=== PATIENT | male | born 1980 | race Two or more races ===

== ENCOUNTER 2024-02-05 18:20 | Inpatient (IN) | payer MEDICAID, OTHER ==
[~2024-02-05] VITALS: Ht 175.3 cm; Wt 63.1 kg
[2024-02-05] MEDS: FOLIC ACID 1 MG, MULTIPLE VITAMIN 10 ML, MAGNESIUM SULF SDV 50% 8 MEQ, THIAMINE INJ 100... INJ STA (18:34)
[2024-02-05] MEDS: LORazepam 2MG/ML-1ML VIAL IV ONE ×2 (19:01→20:28)
[2024-02-05] MEDS: chlordiazePOXIDE HCL 25 MG CAP PO ONE (19:01)
[2024-02-05] MEDS: SODIUM CHLORIDE 0.9% 2,000 ML IV ONE (19:01)
[2024-02-05 19:20] LABS: Eosinophils # (auto) 0 10 ^3/uL (0-0.8); Monocytes # (auto) 0.4 10 ^3/uL (0-1.3); Monocytes % (auto) 5.8 % (0.0-12.0); Nucleated Red Blood Cells % 0.5 %; Red Cell Distribution Width 15.6 % (11.8-14.3); White Blood Cell 7.7 10^3/uL (4.4-10.8)
[2024-02-05 19:23] LABS: Basophils # (auto) 0 10 ^3/uL (0-0.2); Basophils % (auto) 0.5 % (0.0-2.0); Hematocrit 37.2 % (41.0-53.0); Lymphocytes # (auto) 0.4 10 ^3/uL (0.4-5.4); Lymphocytes % (auto) 5.3 % (10.0-50.0); Mean Corpuscular Hgb Conc. 35.1 g/dL (32.0-36.0); Mean Corpuscular Volume 102.6 fL (80.0-100.0); Neutrophils # (auto) 6.8 10 ^3/uL (1.6-8.6); Neutrophils % (auto) 88.4 % (37.0-80.0); Platelet Count (auto) 56 10^3/uL (140-450); Red Blood Cells 3.63 10^6/uL (4.5-5.90)
[2024-02-05 19:30] VITALS: PULSE 124; O2SAT 97
[2024-02-05 19:33] LABS: Alanine Aminotransferase 47 U/L (7-40); Albumin 4.1 g/dL (3.2-4.8); Alkaline Phosphatase 178 U/L (46-116); Anion Gap 30 (5-15); Aspartate Aminotransferase 217 U/L (13-40); BUN/Creatinine Ratio 12.6 (10.0-20.0); Blood Alcohol 85.9 mg/dL (<10); Blood Urea Nitrogen 12 mg/dL (9-23); Calcium 9.2 mg/dL (8.7-10.4); Carbon Dioxide 16 mmol/L (20-30); Chloride 90 mmol/L (98-107); Glucose 166 mg/dL (74-106); Potassium 2.9 mmol/L (3.5-5.1); Sodium 136 mmol/L (136-145)
[2024-02-05 19:34] LABS: Bilirubin, Total 1.3 mg/dL (0.2-1.0); Total Protein 6.9 g/dL (5.7-8.2)
[2024-02-05 19:47] LABS: Platelet Estimate Decreased
[2024-02-05 19:48] LABS: Large Platelets FEW; Macrocytosis Slight
[2024-02-06] MEDS: ACETAMINOPHEN 500 MG TAB PO ONE (00:48)
[2024-02-06] MEDS: POTASSIUM EFFERVESENT TAB 25 MEQ PO ONE (00:49)
[2024-02-06] MEDS: POTASSIUM CHL 20MEQ/100ML 100 ML IV ONE (00:49)
[2024-02-06] MEDS: MVI in SODIUM CHLORIDE 0.9% 1,010 ML ONE (00:52)
[2024-02-06] MEDS ORDERED: MAGNESIUM SULFATE 1GM/100ML 100 ML IV NR (01:00)
[2024-02-06] MEDS ORDERED: LORazepam 2MG/ML-1ML VIAL IV PRN (01:30)
[2024-02-06] MEDS ORDERED: ACETAMINOPHEN 325 MG TAB PO PRN (01:30)
[2024-02-06] MEDS ORDERED: ONDANSETRON HCL 4 MG/2 ML VIAL IV PRN (01:30)
[2024-02-06] MEDS ORDERED: HYDROcodone-ACET 5/325MG TAB PO PRN (01:30)
[2024-02-06] MEDS ORDERED: DOCUSATE SOD 100 MG CAP PO PRN (01:30)
[2024-02-06] MEDS ORDERED: chlordiazePOXIDE HCL 25 MG CAP PO PRN (01:30)
[2024-02-06] MEDS ORDERED: IBUPROFEN 600 MG TAB PO PRN (02:15)
[2024-02-06] MEDS ORDERED: NITROGLYCERIN 0.4 MG SL TAB SL PRN (04:00)
[2024-02-06] MEDS ORDERED: MORPHINE SULFATE INJ 2 MG/ml SYRG IV PRN (04:00)
[2024-02-06] MEDS: LORazepam 2MG/ML-1ML VIAL IV ONE (04:58)
[2024-02-06] MEDS: SODIUM CHLORIDE 0.9% 1,000 ML IV ONE (04:58)
[2024-02-06] MEDS: SODIUM CHLORIDE 0.9% 1,000 ML IV SCH (04:59)
[2024-02-06 05:48] LABS: Urine Bacteria None Seen /hpf (None Seen)
[2024-02-06 06:04] LABS: Urine Blood Negative /uL (Negative); Urine Clarity Clear (Clear); Urine Color Yellow (Yellow); Urine Hyaline Cast FEW /lpf (0 - 2); Urine Mucus FEW (None Seen); Urine Protein, UAD 1+ (Negative); Urine Specific Gravity 1.013 (1.001-1.035); Urine Urobilinogen 2 mg/dL (Negative); Urine WBC 3 /hpf (0 - 3); Urine pH 6.5 (5.0-9.0)
[2024-02-06 06:13] LABS: Amphetamine Screen, Urine Neg (NEGATIVE); Benzodiazephine Screen, Urine Neg (NEGATIVE)
[2024-02-06 06:14] LABS: Barbiturate Scree,Urine Neg (NEGATIVE); Cannabinoid Screen, Urine Pos (NEGATIVE); Cocaine Screen, Urine Neg (NEGATIVE); Opiate Scree,Urine Neg (NEGATIVE); Phencyclidine Screen, Urine Neg (NEGATIVE)
[2024-02-06 06:43] LABS: Basophils # (auto) 0 10 ^3/uL (0-0.2); Eosinophils # (auto) 0 10 ^3/uL (0-0.8); Lymphocytes # (auto) 0.9 10 ^3/uL (0.4-5.4); Mean Corpuscular Hgb Conc. 34.7 g/dL (32.0-36.0); Monocytes # (auto) 0.3 10 ^3/uL (0-1.3); Platelet Count (auto) 43 10^3/uL (140-450)
[2024-02-06 06:45] LABS: Basophils % (auto) 0.9 % (0.0-2.0); Eosinophils % (auto) 0.2 % (0.0-7.0); Hematocrit 28.4 % (41.0-53.0); Hemoglobin 9.9 g/dL (13.5-17.5); Lymphocytes % (auto) 20.6 % (10.0-50.0); Mean Corpuscular Hemoglobin 36.7 pg (28.0-32.0); Mean Corpuscular Volume 105.8 fL (80.0-100.0); Monocytes % (auto) 8.3 % (0.0-12.0); Nucleated Red Blood Cells % 0.4 %; Red Blood Cells 2.69 10^6/uL (4.5-5.90); Red Cell Distribution Width 15.9 % (11.8-14.3); White Blood Cell 4.2 10^3/uL (4.4-10.8)
[2024-02-06 07:01] LABS: Alanine Aminotransferase 36 U/L (7-40); Albumin 3.2 g/dL (3.2-4.8); Alkaline Phosphatase 141 U/L (46-116); Anion Gap 12 (5-15); Aspartate Aminotransferase 196 U/L (13-40); BUN/Creatinine Ratio 11.4 (10.0-20.0); Bilirubin, Total 2.3 mg/dL (0.2-1.0); Blood Urea Nitrogen 9 mg/dL (9-23); Calcium 8.2 mg/dL (8.7-10.4); Carbon Dioxide 27 mmol/L (20-30); Chloride 94 mmol/L (98-107); Glucose 112 mg/dL (74-106); Potassium 3.3 mmol/L (3.5-5.1); Sodium 133 mmol/L (136-145); Total Protein 5.6 g/dL (5.7-8.2)
[2024-02-06 09:00] VITALS: PULSE 105; RESP 14; O2SAT 97
[2024-02-06] MEDS: THIAMINE HCL 100 MG TAB PO SCH (09:51)
[2024-02-06] MEDS: FOLIC ACID 1 MG TAB PO SCH (09:51)
[2024-02-06] MEDS: MULTIPLE VITAMIN TAB PO SCH (09:52)
[2024-02-06] MEDS: FOLIC ACID 1 MG, MULTIPLE VITAMIN 10 ML, MAGNESIUM SULF SDV 50% 8 MEQ, THIAMINE INJ 100... INJ ONE (09:56)
[2024-02-06 22:48] VITALS: PULSE 85; RESP 18; O2SAT 98
[2024-02-06] MEDS ORDERED: GABA-1250 PO (22:53)
[2024-02-07] MEDS: THROAT LOZENGES(CEPASTAT) MT PRN (00:15)
[2024-02-07 01:00] VITALS: BP 130/97; PULSE 89; RESP 18; TEMP 98.2; O2SAT 96
[2024-02-07 05:00] VITALS: BP 138/94; PULSE 113; RESP 18; TEMP 98.3; O2SAT 99
[2024-02-07 06:34] LABS: Eosinophils # (auto) 0.1 10 ^3/uL (0-0.8); Hemoglobin 9.6 g/dL (13.5-17.5); Lymphocytes # (auto) 1.3 10 ^3/uL (0.4-5.4)
[2024-02-07 06:37] LABS: Alanine Aminotransferase 34 U/L (7-40); Alkaline Phosphatase 129 U/L (46-116); Anion Gap 7 (5-15); Aspartate Aminotransferase 165 U/L (13-40); Carbon Dioxide 28 mmol/L (20-30); Chloride 98 mmol/L (98-107); Glucose 102 mg/dL (74-106); Potassium 2.7 mmol/L (3.5-5.1); Sodium 133 mmol/L (136-145)
[2024-02-07 06:38] LABS: Basophils # (auto) 0 10 ^3/uL (0-0.2); Basophils % (auto) 0.9 % (0.0-2.0); Bilirubin, Total 1.3 mg/dL (0.2-1.0); Eosinophils % (auto) 1.5 % (0.0-7.0); Hematocrit 27.3 % (41.0-53.0); Lymphocytes % (auto) 30.2 % (10.0-50.0); Mean Corpuscular Hemoglobin 36.8 pg (28.0-32.0); Mean Corpuscular Hgb Conc. 35.2 g/dL (32.0-36.0); Mean Corpuscular Volume 104.5 fL (80.0-100.0); Monocytes # (auto) 0.3 10 ^3/uL (0-1.3); Monocytes % (auto) 7.4 % (0.0-12.0); Neutrophils # (auto) 2.5 10 ^3/uL (1.6-8.6); Red Blood Cells 2.62 10^6/uL (4.5-5.90); Red Cell Distribution Width 15.6 % (11.8-14.3); Total Protein 5.2 g/dL (5.7-8.2); White Blood Cell 4.2 10^3/uL (4.4-10.8)
[2024-02-07 06:46] LABS: BUN/Creatinine Ratio 7.7 (10.0-20.0); Blood Urea Nitrogen < 5 mg/dL (9-23)
[2024-02-07 06:54] LABS: Calcium 8.4 mg/dL (8.7-10.4)
[2024-02-07 07:20] LABS: Platelet Count (auto) 64 10^3/uL (140-450)
[2024-02-07 08:00] VITALS: PULSE 171; RESP 16; O2SAT 100
[2024-02-07 09:00] VITALS: BP 124/85; PULSE 105; RESP 16; TEMP 99.4; O2SAT 100
[2024-02-07 12:21] VITALS: BP 130/98; PULSE 119; RESP 18; TEMP 98.2; O2SAT 97
[2024-02-07] MEDS: POTASSIUM CHLORIDE 20 MEQ, LIDOCAINE 1% (LOCAL ANESTH.) 2 ML in SODIUM CHL 0.9% 100 ML IV ONE (14:15)
[2024-02-07] MEDS: POTASSIUM CHL 20 Meq TABLET PO ONE (15:29)
== END 2024-02-07 15:48 | disposition left against medical advice (07) | DRG 816 ==
LOC: ER 18:20 → EDBD 18:20 → TELE-WESTW 02-06 03:47 → TELE 02-06 03:47 → TELE-WESTW 02-06 22:08
PROVIDERS: ADMIT Nurse Practitioner Family; ATTEND Internal Medicine
DX: T51.91XA Toxic effect of unspecified alcohol, accidental (unintentional), initial encounter (principal); D61.818 Other pancytopenia; K76.89 Other specified diseases of liver; R73.9 Hyperglycemia, unspecified; F10.229 Alcohol dependence with intoxication, unspecified; Z53.29 Procedure and treatment not carried out because of patient's decision for other reasons; F41.9 Anxiety disorder, unspecified; F32.A Depression, unspecified; F10.239 Alcohol dependence with withdrawal, unspecified; Z79.899 Other long term (current) drug therapy; Y90.4 Blood alcohol level of 80-99 mg/100 ml; E87.6 Hypokalemia
CPT/HCPCS: 36415; 80053; 80307; 80320; 81001; 84484; 85025; 93005; G0378; J2001

== ENCOUNTER 2024-09-27 10:20 | Inpatient (IN) | payer MEDICAID ==
[~2024-09-27] VITALS: Ht 175.3 cm; Wt 84.9 kg
[~2024-09-27 10:20] MED LIST: GABA-1250 PO
--- NOTE | 2024-09-27 10:43 | ED.PDOC ---
HPI (NEURO) HPI Comments 44y M who presents to the ED via EMS for chief complaint of syncope. - EMS states pt was called by after pt was in police car and had syncopal episodes prior at counter at liquor store and in back of police car - EMS states they arrived on scene and states pt was alert and oriented but states pt appeared in post-ictal state - pt in the ED states, he did have syncopal episode at liquor store counter and remembers waking on the floor - pt states has been drinking nonstop for the past 2 weeks, drinking 1 pint daily, with last drink last night PM - pt states he has also not eaten anything except alcohol for the past 2 weeks - pt states he has prior history of ETOH abuse PMH: HTN, anxiety, DM, ETOH abuse PSH: esophageal varices banding Meds: gabapentin Allergies: denies social history: heavy ETOH use, denies tobacco use, denies drug use KULJU: SYNCOPE, ETOH Patient denies being homeless. 44-year-old male brought in by ambulance from a liquor store after two witnessed episodes of syncope. One at the liquor store and another one at the back of the [employer]'s car. Patient does not remember exactly. Patient denies any history of seizures. Patient admits to binge drinking the last two weeks at least a pt of alcohol daily. He was at the liquor store today to purchase more alcohol. Patient was unable to communicate if he feels that he had any physical trauma or head injury or neck injury. He is able to answer questions appropriately. Able to recall some of his medications such as gabapentin and some of his past medical history. Patient moving all four extremities. Does not appear to have any focal deficits. Patient also states he has not been eating for the last two weeks. Patient states that he is hungry. Per EMS, pre-hospital course vital signs were stable with some tachycardia heart rate in the 130s. On our initial evaluation here patient was hypotensive blood pressure in the 60s. We will give him some fluid resuscitation. HPI: Poor Historian. REVIEW OF SYSTEMS: CONSTITUTIONAL: Denies acute: fever, diaphoresis, chills, HEAD: Denies acute: headache, photophobia Eyes: Denies acute: Double vision, vision loss, eye pain, eye discharge. EARS: Denies acute: tinnitus, hearing loss, ear discharge, ear pain, THROAT: Denies acute: sore throat, swelling, difficulty swallowing , pain with swallowing, change in voice. NECK: Denies acute: neck pain, neck swelling, stiff neck. HEART: Denies acute : chest pain, palpitations, LUNGS: Denies acute: SOB, wheezing, cough, hemoptysis ABDOMEN: Denies acute: abdominal pain, Nausea, Vomiting, diarrhea, melena , hematemesis, hematochezia SKIN: Denies acute: rash, redness, lesions, itchiness. EXTREMITIES: Denies acute: calf pain, numbness, tingling, weakness, denies pain in extremity. Denies acute: Low back pain. Neuro: Denies acute: focal neurological deficit, motor or sensory focal neurological deficit, tremors, seizure like activity, confusion, dizziness, cauda equina like symptoms. : Denies acute: dysuria, hematuria, flank pain, increase in urinary frequency. PSYCH: Denies acute: hallucination, suicidal ideation, homicidal ideation. PHYSICAL EXAM: General: ----mild----acute distress, awake and alert. Head: normocephalic, atraumatic. Neck: supple, trachea is midline, no swelling. Throat: Normal phonation. Eyes:, no erythema, no purulent discharge, no proptosis, no icterus. Heart: regular rate, regular rhythm, no significant murmur appreciated. Lungs: no apparent respiratory distress, Able to speak in full sentences. No wheezing, no rhonchi, no crackles. No stridors Clear to auscultation bilaterally. Abdomen: non tender to palpation, non distended, soft, no guarding, no rebound, + bowel sounds. Neuro: Awake, Alert, oriented to name, self, situation, follows commands GCS=15. Speech is normal. Skin: no petechia, no purpura, no cyanosis, non-pale, not jaundice. Lower extremities: --no - Pitting edema no deformity, no focal swelling, no calf TTP. Makes eye contact. moves all four extremities. Face: no apparent facial droop. No nuchal rigidity, Kernig's sign, Brudzinski's sign, no meningeal signs. ED COURSE: Chief Complaint: Seizure Time Seen by MD: 11:49 Reviewed Notes: Nurses Notes, Produce Clerk Notes, Allergies Information Source: Patient, Emergency Med Personnel Mode of Arrival: EMS Past Medical History PAST MEDICAL HISTORY: Anxiety, Depression Family History Family History: Reviewed,noncontributory to illness Social History Smoker: Non-Smoker Alcohol: Heavy Drugs: Marijuana Lives In: Home Was a procedure done? Was a procedure done?: No Differential Diagnosis (SZ) Seizure: Hyperventilation, Psychogenic Seizure, Alcohol Withdrawl, Anticonvulsant Withdrawl, Closed Head Injury, CVA/TIA, Drug Ingestion, Eclampsia, Hypocalcemia, Hypoglycemia, Hyponatremia, Hypoxemia, Idiopathic, Mass Lesion, Meningitis, Syncope, Encephalopathy, Epilepsy-Break Through, Epilepsy- Status General Weakness: Anemia, CVA, Dehydration, Dysrhythmia, Electrolyte imbalance, Encephalopathy, Guillain-Bernie, Hypoglycemia, Hypotension, Hypovolemia, Labyrinthitis, Meniere's disease, Myasthenia gravis, Myocardial infarction, Pulmonary embolus, Renal failure, Repiratory failure, TIA, VBI, Vertigo: chaz tral, Vertigo: peripheral, Vestibular neuronitis X-Ray, Labs, Meds, VS Vital Signs Date Time Temp Pulse Resp B/P (MAP) Pulse Ox O2 Delivery O2 Flow Rate FiO2 09/27/24 13:41 124 09/27/24 13:10 130 15 143/79 (100) 97 09/27/24 11:58 124 09/27/24 10:55 98.2 139 18 82/54 (63) 94 98.2 09/27/24 10:55 139 18 94 Room Air* 0 21 09/27/24 10:42 98.2 130 20 99/69 (79) 95 98.2 Lab Test 09/27/24 13:08 09/27/24 13:00 09/27/24 11:22 Range/Units Urine Color Dark yellow Yellow Urine Clarity Turbid H Clear Urine pH 6.5 5.0-9.0 Urine Specific [place] 1.012 1.001-1.035 Urine Protein 1+ H Negative Urine Ketones Negative Negative Urine Blood 3+ H Negative /uL Urine Nitrite Negative Negative Urine Bilirubin Negative Negative Urine Urobilinogen Normal Negative mg/dL Urine Leukocyte Esterase Negative Negative /uL Urine RBC 1 0 - 3 /hpf Urine Microscopic WBC 1 0-3 /HPF Urine Squamous Epithelial Cells None seen <5 /hpf Urine Bacteria None seen None Seen /hpf Urine Hyaline Casts Few 0 - 2 /lpf Urine Glucose Normal Normal mg/dL Urine Opiates Screen Neg NEGATIVE Urine Fentanyl Screen Neg NEGATIVE Urine Barbiturates Screen Neg NEGATIVE Urine Phencyclidine Screen Neg NEGATIVE Urine Amphetamines Screen Neg NEGATIVE Urine Benzodiazepines Screen Neg NEGATIVE Urine Cocaine Screen Neg NEGATIVE Urine Cannabinoids Screen Pos NEGATIVE Lactic Acid Level 3.9 *H 8.8 *H 0.4-2.0 mmol/L Troponin I High Sensitivity 134 *H 156 *H </=54 ng/L White Blood Count 11.2 H 4.4-10.8 10^3/uL Red Blood Count 4.90 4.5-5.90 10^6/uL Hemoglobin 14.7 13.5-17.5 g/dL Hematocrit 41.7 41.0-53.0 % Mean Corpuscular Volume 85.0 80.0-100.0 fL Mean Corpuscular Hemoglobin 29.9 28.0-32.0 pg Mean Corpuscular Hemoglobin Concent 35.2 32.0-36.0 g/dL Red Cell Distribution Width 13.8 11.8-14.3 % Platelet Count 142 140-450 10^3/uL Mean Platelet Volume 10.1 6.9-10.8 fL Neutrophils (%) (Auto) 86.8 H 37.0-80.0 % Lymphocytes (%) (Auto) 7.3 L 10.0-50.0 % Monocytes (%) (Auto) 5.0 0.0-12.0 % Eosinophils (%) (Auto) 0.1 0.0-7.0 % Basophils (%) (Auto) 0.8 0.0-2.0 % Neutrophils # (Auto) 9.7 H 1.6-8.6 10 ^3/uL Lymphocytes # (Auto) 0.8 0.4-5.4 10 ^3/uL Monocytes # (Auto) 0.6 0-1.3 10 ^3/uL Eosinophils # (Auto) 0 0-0.8 10 ^3/uL Basophils # (Auto) 0.1 0-0.2 10 ^3/uL Nucleated Red Blood Cells 0.4 % Sodium Level 118 *L 136-145 mmol/L Potassium Level 2.5 *L 3.5-5.1 mmol/L Chloride Level 63 L 98-107 mmol/L Carbon Dioxide Level 36 H 20-31 mmol/L Anion Gap 19 H 5-15 Blood Urea Nitrogen 29 H 9-23 mg/dL Creatinine 2.14 H 0.700-1.30 mg/dL Glomerular Filtration Rate Calc 38 >90 mL/min BUN/Creatinine Ratio 13.6 10.0-20.0 Serum Glucose 151 H 74-106 mg/dL Calcium Level 14.0 *H 8.7-10.4 mg/dL Magnesium Level 1.6 1.6-2.6 mg/dL Total Bilirubin 1.4 H 0.2-1.0 mg/dL Aspartate Amino Transferase (AST) 245 H 13-40 U/L Alanine Aminotransferase (ALT) 108 H 7-40 U/L Alkaline Phosphatase 131 H 46-116 U/L Creatine Kinase 4647 H 46-171 U/L Total Protein 7.5 5.7-8.2 g/dL Albumin 4.4 3.2-4.8 g/dL Plasma/Serum Blood Alcohol 11.4 H <10 mg/dL Current Medications Medications (Trade) Dose Ordered Sig/Bruno Route Start Time Stop Time Status Last Admin Sodium Chloride 1,000 ml @ 1,000 mls/hr Q1H ONCE IV 09/27/24 12:15 09/27/24 13:14 DC 09/27/24 12:16 Potassium Chloride (Klor-Con Tablet) 60 meq ONCE ONCE PO 09/27/24 12:15 09/27/24 12:16 DC 09/27/24 12:21 Sodium Chloride 1,000 ml @ 1,000 mls/hr Q1H ONCE IV 09/27/24 12:15 09/27/24 13:14 DC 09/27/24 13:28 Piperacillin Sod/ Tazobactam Sod 100 ml @ 100 mls/hr ONCE ONCE IV 09/27/24 12:15 09/27/24 13:14 DC 09/27/24 12:22 Time of 1ST Reevaluation: 11:53 Reevaluation 1ST: Improved Patient Education/Counseling: Diagnosis, Treatment Family Education/Counseling: No Family Present Comments Patient presented with the above HPI.---syncope and collapse and generalized weakness---workup was initiated. patient was found with the above mentioned diagnosis. the following medications were ordered: please refer to order lists of meds and tests obtained by myself Dr. Perrin. Patient ED course and VS have been stabilized. Patient has been reassessed in the ED and remained in a stable condition. Pertinent incidental findings were discussed with the patient and/or family. Patient/family voices understanding and is agreeable with plan. Patient has been observed in the ED adequate length of time to insure improvement/stability. Escalation of care considered: Consideration of escalation to observation or admission Electrolytes were replaced, patient was given multiple food resuscitation. Vital signs improved. Repeat CMP was obtained which shows improvement. Patient denies any chest pain or shortness of breath. Patient was ADMITTED to the medicine team for further evaluation and treatment of their presentation. All the reports of any imaging studies that were ordered by myself were reviewed by myself. Departure 1 Departure Time of Disposition: 11:35 Impression: Primary Impression: Syncope and collapse Additional Impressions: Hypotension Hyponatremia Rhabdomyolysis Acute renal failure Elevated LFTs Alcohol abuse Hypokalemia Hypercalcemia Elevated troponin Dehydration Disposition: ADMITTED INPATIENT Admit to: ICU Condition: Critical Discharged With: Self Critical Care Note Critical Care Time?: Yes (55 min-critical care time only) I personally scribed for MARBELLA PERRIN DO ([email or web address]) on 09/27/24 at 10:43. Electronically submitted by Farhat Santiago ([email or web address]). I personally scribed for MARBELLA PERRIN DO ([email or web address]) on 09/27/24 at 11:49. Electronically submitted by Farhat WEISS). MARBELLA PERRIN DO September 27, 2024 10:43
[2024-09-27 10:55] VITALS: PULSE 139; RESP 18; O2SAT 94
--- NOTE | 2024-09-27 11:23 | DVH ---
EXAM: CT HEAD WITHOUT CONTRAST HISTORY: syncope COMPARISON: None TECHNIQUE: Axial images of the head were obtained and reformatted in coronal and sagittal planes. All CT scans at this medical facility are performed using dose modulation techniques as appropriate t o a performed exam including the following: Automated exposure control was utilized; adjustment of th e MA and/or KV according to patient size; and use of iterative reconstruction technique. CT Dose: CTDI volume is 61 mGy. Dose-length product is 1336 mGy*cm FINDINGS: There is a prominent 1.6 cm cystic focus in the central sridevi. There is no evidence of acute intracran ial hemorrhage, mass, mass effect midline shift. There is no hydrocephalus or extra-axial fluid colle ction. The visualized paranasal sinuses and mastoid air cells are clear. The calvarium is intact. IMPRESSION: 1. Nonspecific 1.6 cm cystic focus in the central sridevi. Further evaluation with MRI brain with contra st is recommended. 2. There is no evidence of intracranial hemorrhage. HS:Y
--- NOTE | 2024-09-27 11:26 | DVH ---
XY CHEST PORTABLE, HISTORY: syncope COMPARISON: None None TECHNICAL DATA: 1 view of the chest was obtained. FINDINGS: Lines and tubes: None Cardiomediastinal silhouette: normal Pulmonary vasculature: normal Lung expansion: normal Lung airspace: normal Lung interstitium: normal Pleura: normal Pneumothorax: no Bones: Unremarkable Other: no IMPRESSION: No acute intrathoracic abnormality.
--- NOTE | 2024-09-27 11:34 | DVH ---
EXAM: CT CERVICAL WITHOUT CONTRAST INDICATION: syncope EXAM DATE: 09/27/2024 10:50 AM COMPARISON: None TECHNIQUE: Noncontrast axial CT images of the cervical spine were performed. Sagittal and coronal ref ormatted images were obtained. Radiation optimization: All CT scans at this facility use at least one of these dose optimization techniques: automated exposure control mA and/or kV adjustment per patie nt size (includes targeted exams where dose is matched to clinical indication) or iterative reconstr uction. Radiation Dose Information: CT Dose: CTDI volume is 22.58 mGy. Dose-length product is 682.41 mGy*cm FINDINGS: No fracture or listhesis of the cervical spine. The cervical spinal canal is congenitally narrow. Th ere is advanced degenerative disc disease C4-C7. The AP dimension of the spinal canal is narrowed to 9 mm at C4-C5, 7 mm at C5-C6, 5.5 mm at C6-C7. There is significant neural foraminal stenosis C5-C6 and C6-C7 bilaterally. There is palatine and lingual tonsillar hypertrophy with mild narrowing of the upper airway. There is mild mucosal thickening of the right maxillary sinus. There is a metallic to ngue piercing. There is mild scarring and emphysema of the right lung apex. IMPRESSION: 1. No fracture of the cervical spine. 2. 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 Recommend follow-up noncontrast MRI of the cervical spine as there is likely mass effect on the cervical spinal cord at multiple levels. 3. Significant neural foraminal stenosis bilaterally at C5-C6 and C6-C7. These findings May correspo nd to bilateral upper extremity radicular symptoms in the C6 and C7 nerve root distributions. These w ould also be better characterized with noncontrast MRI. 4. Tonsillar hypertrophy with mild narrowing of the upper airway. 5. Mild right maxillary sinus disease. The paranasal sinuses are not fully imaged here.
[2024-09-27 11:35] LABS: Basophils # (auto) 0.1 10 ^3/uL (0-0.2); Basophils % (auto) 0.8 % (0.0-2.0); Eosinophils # (auto) 0 10 ^3/uL (0-0.8); Eosinophils % (auto) 0.1 % (0.0-7.0); Hematocrit 41.7 % (41.0-53.0); Hemoglobin 14.7 g/dL (13.5-17.5); Lymphocytes # (auto) 0.8 10 ^3/uL (0.4-5.4); Lymphocytes % (auto) 7.3 % (10.0-50.0); Mean Corpuscular Hemoglobin 29.9 pg (28.0-32.0); Mean Corpuscular Hgb Conc. 35.2 g/dL (32.0-36.0); Monocytes # (auto) 0.6 10 ^3/uL (0-1.3); Neutrophils # (auto) 9.7 10 ^3/uL (1.6-8.6); Neutrophils % (auto) 86.8 % (37.0-80.0); Nucleated Red Blood Cells % 0.4 %; Platelet Count (auto) 142 10^3/uL (140-450); Red Cell Distribution Width 13.8 % (11.8-14.3); White Blood Cell 11.2 10^3/uL (4.4-10.8)
[2024-09-27 11:54] LABS: Anion Gap 19 (5-15); BUN/Creatinine Ratio 13.6 (10.0-20.0); Blood Alcohol 11.4 mg/dL (<10); Magnesium 1.6 mg/dL (1.6-2.6); Total Protein 7.5 g/dL (5.7-8.2)
[2024-09-27 11:55] LABS: Albumin 4.4 g/dL (3.2-4.8)
[2024-09-27 11:59] LABS: Alanine Aminotransferase 108 U/L (7-40); Alkaline Phosphatase 131 U/L (46-116); Aspartate Aminotransferase 245 U/L (13-40); Bilirubin, Total 1.4 mg/dL (0.2-1.0); Blood Urea Nitrogen 29 mg/dL (9-23); Carbon Dioxide 36 mmol/L (20-31); Chloride 63 mmol/L (98-107); Glucose 151 mg/dL (74-106); Lactic Acid w/Reflex 8.8 mmol/L (0.4-2.0); Potassium 2.5 mmol/L (3.5-5.1); Sodium 118 mmol/L (136-145)
[2024-09-27] MEDS: SODIUM CHLORIDE 0.9% 1,000 ML IV ONE ×3 (12:16→15:40)
[2024-09-27 12:17] LABS: Creatine Kinase IFCC 4647 U/L (46-171)
[2024-09-27] MEDS: POTASSIUM CHL 20 Meq TABLET PO ONE (12:21)
[2024-09-27] MEDS: PIPERACILLIN-TAZOB 3.375GM 100 ML IV ONE (12:22)
[2024-09-27 13:18] LABS: Urine Bacteria None Seen /hpf (None Seen)
[2024-09-27 13:27] LABS: Urine Blood 3+ /uL (Negative); Urine Clarity Turbid (Clear); Urine Hyaline Cast FEW /lpf (0 - 2); Urine Protein, UAD 1+ (Negative); Urine Specific Gravity 1.012 (1.001-1.035); Urine Squamous Epithelial Cell None Seen /hpf (<5); Urine Urobilinogen Normal (Negative); Urine WBC 1 /HPF (0-3); Urine pH 6.5 (5.0-9.0)
[2024-09-27 13:29] LABS: Urine Color DARK YELLOW (Yellow)
[2024-09-27] MEDS ORDERED: NITROGLYCERIN 0.4 MG SL TAB SL PRN (14:15)
[2024-09-27] MEDS ORDERED: MORPHINE SULFATE INJ 2 MG/ml SYRG IV PRN (14:15)
--- NOTE | 2024-09-27 14:24 | DVHHP2 ---
History of Present Illness Reason for Visit: Seizure History of Present Illness Alvin Hankins is a 44-year-old male with past medical history of anxiety, ETOH dependance, and esophageal varices, who came in for a seizure. Patient states he has been drinking heavily for the past 3 weeks about 1 pint a day. The patient is a poor historian and unable to recall all the events of today. Per reports he was at the liquor store when he had seizure like activity. EMS was called, evaluated him and then left. He had another episode and was brought to the hospital. There has been no seizure like activity since his arrival to ER. Patient is unable to confirm past medical history and medications he is taking. States he lives alone with his cat. GI: Other (esophageal varices, with banding) Past Surgical History: Other (banding of esophageal varices) Smoke: No ALCOHOL: heavy Drugs: Marijuana Lives: Alone Domestic Violence: Neg Review of Systems Constitutional: No: Fever, Chills, Sweats, Weakness, Malaise, Other Eyes: No: Pain, Vision change, Conjunctivae inflammation, Eyelid inflammation, Other, Redness ENT: No: Ear pain, Ear discharge, Nose pain, Nose discharge, Nose congestion, Mouth pain, Mouth swelling, Throat pain, Throat swelling, Other Respiratory: No: Cough, Dry, Shortness of breath, SOB with excertion, Wheezing, Hemoptysis, Pleuritic Pain, Sputum, Wheezing, Other Cardiovascular: No: Chest Pain, Palpitations, Orthopnea, Paroxysmal Noc. Dyspnea, Edema, Lt Headedness, Other Gastrointestinal: No: Nausea, Vomiting, Abdominal Pain, Diarrhea, Constipation, Melena, Hematochezia, Other Genitourinary: No Dysuria, No Frequency, No Incontinence, No Hematuria, No Retention, No Other Musculoskeletal: No: other, neck pain, shoulder pain, arm pain, back pain, hand pain, leg pain, foot pain Skin: No: Rash, Lesions, Jaundice, Bruising, Other Neurological: Weakness, Confusion, Seizures; No: Numbness, Incoordination, Change in speech, Other Allergies: Coded Allergies: NO KNOWN ALLERGIES (Unverified , 02/05/24) Medications Current Medications Medications Dose Ordered Sig/Bruno Route Start Time Stop Time Status Last Admin Dose Admin Acetaminophen 650 mg Q6HP PRN PO 09/27/24 14:15 UNV Nitroglycerin 0.4 mg Q5MINP PRN SL 09/27/24 14:15 UNV Morphine Sulfate 2 mg Q30M PRN IV 09/27/24 14:15 UNV Chlordiazepoxide HCl 50 mg Q8H PO 09/27/24 14:15 09/28/24 06:16 UNV Chlordiazepoxide HCl 50 mg Q12HR PO 09/28/24 10:00 09/28/24 22:01 UNV Chlordiazepoxide HCl 25 mg Q12HR PO 09/29/24 10:00 09/29/24 22:01 UNV Chlordiazepoxide HCl 25 mg QAM PO 09/30/24 07:00 09/30/24 07:01 UNV Thiamine HCl 100 mg DAILY PO 09/28/24 10:00 UNV Folic Acid 1 mg DAILY PO 09/28/24 10:00 UNV Multivitamins 1 tab DAILY PO 09/28/24 10:00 UNV Lorazepam 1 mg Q4H IV 09/27/24 14:15 UNV Lorazepam 1 mg Q2HPRN PRN IV 09/27/24 14:15 UNV Exam Vital Signs Vital Signs Date Time Temp Pulse Resp B/P (MAP) Pulse Ox O2 Delivery O2 Flow Rate FiO2 09/27/24 11:58 124 09/27/24 10:55 98.2 18 82/54 (63) 94 98.2 09/27/24 10:55 Room Air* 0 21 General Appearance: Alert, Cooperative, moderate distress, Other (Oriented x 2 ) HEENT: Atraumatic, PERRLA Respiratory: Clear to auscultation, Normal air movement Cardiovascular: Normal S1, Normal S2, Other (ST) Abdominal: Normal bowel sounds, Soft, No tenderness, No hepatospenomegaly Extremities: No clubbing, No cyanosis, No edema, Normal pulses Skin: No rashes, No breakdown, No significant lesion Neuro: Normal speech, Other (weakness) Labs/Xrays Labs Test 09/27/24 13:08 09/27/24 13:00 09/27/24 11:22 Range/Units Urine Color Dark yellow Yellow Urine Clarity Turbid H Clear Urine pH 6.5 5.0-9.0 Urine Specific [place] 1.012 1.001-1.035 Urine Protein 1+ H Negative Urine Ketones Negative Negative Urine Blood 3+ H Negative /uL Urine Nitrite Negative Negative Urine Bilirubin Negative Negative Urine Urobilinogen Normal Negative mg/dL Urine Leukocyte Esterase Negative Negative /uL Urine RBC 1 0 - 3 /hpf Urine Microscopic WBC 1 0-3 /HPF Urine Squamous Epithelial Cells None seen <5 /hpf Urine Bacteria None seen None Seen /hpf Urine Hyaline Casts Few 0 - 2 /lpf Urine Glucose Normal Normal mg/dL Lactic Acid Level 3.9 *H 0.4-2.0 mmol/L Troponin I High Sensitivity 134 *H </=54 ng/L White Blood Count 11.2 H 4.4-10.8 10^3/uL Red Blood Count 4.90 4.5-5.90 10^6/uL Hemoglobin 14.7 13.5-17.5 g/dL Hematocrit 41.7 41.0-53.0 % Mean Corpuscular Volume 85.0 80.0-100.0 fL Mean Corpuscular Hemoglobin 29.9 28.0-32.0 pg Mean Corpuscular Hemoglobin Concent 35.2 32.0-36.0 g/dL Red Cell Distribution Width 13.8 11.8-14.3 % Platelet Count 142 140-450 10^3/uL Mean Platelet Volume 10.1 6.9-10.8 fL Neutrophils (%) (Auto) 86.8 H 37.0-80.0 % Lymphocytes (%) (Auto) 7.3 L 10.0-50.0 % Monocytes (%) (Auto) 5.0 0.0-12.0 % Eosinophils (%) (Auto) 0.1 0.0-7.0 % Basophils (%) (Auto) 0.8 0.0-2.0 % Neutrophils # (Auto) 9.7 H 1.6-8.6 10 ^3/uL Lymphocytes # (Auto) 0.8 0.4-5.4 10 ^3/uL Monocytes # (Auto) 0.6 0-1.3 10 ^3/uL Eosinophils # (Auto) 0 0-0.8 10 ^3/uL Basophils # (Auto) 0.1 0-0.2 10 ^3/uL Nucleated Red Blood Cells 0.4 % Sodium Level 118 *L 136-145 mmol/L Potassium Level 2.5 *L 3.5-5.1 mmol/L Chloride Level 63 L 98-107 mmol/L Carbon Dioxide Level 36 H 20-31 mmol/L Anion Gap 19 H 5-15 Blood Urea Nitrogen 29 H 9-23 mg/dL Creatinine 2.14 H 0.700-1.30 mg/dL Glomerular Filtration Rate Calc 38 >90 mL/min BUN/Creatinine Ratio 13.6 10.0-20.0 Serum Glucose 151 H 74-106 mg/dL Calcium Level 14.0 *H 8.7-10.4 mg/dL Magnesium Level 1.6 1.6-2.6 mg/dL Total Bilirubin 1.4 H 0.2-1.0 mg/dL Aspartate Amino Transferase (AST) 245 H 13-40 U/L Alanine Aminotransferase (ALT) 108 H 7-40 U/L Alkaline Phosphatase 131 H 46-116 U/L Creatine Kinase 4647 H 46-171 U/L Total Protein 7.5 5.7-8.2 g/dL Albumin 4.4 3.2-4.8 g/dL Plasma/Serum Blood Alcohol 11.4 H <10 mg/dL EXAM: CT CERVICAL WITHOUT CONTRAST FINDINGS: No fracture or listhesis of the cervical spine. The cervical spinal canal is congenitally narrow. There is advanced degenerative disc disease C4-C7. The AP dimension of the spinal canal is narrowed to 9 mm at C4-C5, 7 mm at C5-C6, 5.5 mm at C6-C7. There is significant neural foraminal stenosis C5-C6 and C6-C7 bilaterally. There is palatine and lingual tonsillar hypertrophy with mild narrowing of the upper airway. There is mild mucosal thickening of the right maxillary sinus. There is a metallic tongue piercing. There is mild scarring and emphysema of the right lung apex. IMPRESSION: 1. No fracture of the cervical spine. 2. 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 Re commend follow-up noncontrast MRI of the cervical spine as there is likely mass effect on the cervical spinal cord at multiple levels. 3. Significant neural foraminal stenosis bilaterally at C5-C6 and C6-C7. These findings May correspond to bilateral upper extremity radicular symptoms in the C6 and C7 nerve root distributions. These would also be better characterized with noncontrast MRI. 4. Tonsillar hypertrophy with mild narrowing of the upper airway. 5. Mild right maxillary sinus disease. The paranasal sinuses are not fully imaged here. XY CHEST PORTABLE, FINDINGS: Lines and tubes: None Cardiomediastinal silhouette: normal Pulmonary vasculature: normal Lung expansion: normal Lung airspace: normal Lung interstitium: normal Pleura: normal Pneumothorax: no Bones: Unremarkable Other: no IMPRESSION: No acute intrathoracic abnormality. EXAM: CT HEAD WITHOUT CONTRAST FINDINGS: There is a prominent 1.6 cm cystic focus in the central sridevi. There is no evidence of acute intracranial hemorrhage, mass, mass effect midline shift. There is no hydrocephalus or extra-axial fluid collection. The visualized paranasal sinuses and mastoid air cells are clear. The calvarium is intact. IMPRESSION: 1. Nonspecific 1.6 cm cystic focus in the central sridevi. Further evaluation with MRI brain with contrast is recommended. 2. There is no evidence of intracranial hemorrhage. Assessment/Plan Assessment/Plan Assessment: Acute renal failure, Lactic acidosis, Seizure, Elevated troponin, Rhabdomyolysis, ETOH dependance, Transaminitis, Hyponatremia, Hypokalemia, Hypercalcemia, Hyperglycemia, Plan: Admit to [facility], IV hydration, CIWA protocol, Tapering Librium, Supplemental vitamins for ETOH withdrawal, Manage/Monitor electrolytes closely, Consider neurology consult if seizures persist, Consider MRI of brain, Plan discussed with: Patient My Orders Orders - NAHUM FLANAGAN Procedure Category Date Status Time Admit ADMIT 09/27/24 Transmitted 14:05 Code Status CODE 09/27/24 Transmitted 14:05 2 Gm Sodium Diet DIET 09/27/24 Transmitted Dinner Complete Blood Count LAB 09/28/24 Verified 04:00 Comprehensive LAB 09/28/24 Verified Metabolic Panel 04:00 Condition: Critical [facility] 09/27/24 In Process 14:05 Acetaminophen Tablet [facility] 09/27/24 Logged (Tylenol Tablet) 14:15 Nitroglycerin [facility] 09/27/24 Logged Sublingual (Ntrostat 14:15 Morphine Sulfate [facility] 09/27/24 Logged Injection 14:15 Stat Ekg For Chest [facility] 09/27/24 In Process Pain 14:05 Notify Of Changes [facility] 09/27/24 In Process From Base 14:05 Pension Consultant For [facility] 09/27/24 In Process 24 Hours 14:05 Emergency Dysrhythmia [facility] 09/27/24 In Process Protocol 14:05 Rhythm Strips Once NEO 09/27/24 In Process Every Shift 14:05 Oxygen By Nasal RT 09/27/24 Transmitted Cannula 14:05 Chlordiazepoxide Hcl PHA 09/27/24 Logged Capsule (Librium Ca 14:15 Chlordiazepoxide Hcl PHA 09/28/24 Logged Capsule (Librium Ca 10:00 Chlordiazepoxide Hcl PHA 09/29/24 Logged Capsule (Librium Ca 10:00 Chlordiazepoxide Hcl PHA 09/30/24 Logged Capsule (Librium Ca 07:00 Sodium Chloride 0.9% PHA 09/27/24 Logged 14:15 Thiamine Tab PHA 09/28/24 Logged 10:00 Folic Acid Tablet PHA 09/28/24 Logged 10:00 Multiple Vitamin PHA 09/28/24 Logged Tablet (Mvi Tab) 10:00 Thiamine Tab PHA 09/27/24 Logged 14:15 Multiple Vitamin PHA 09/27/24 Logged Tablet (Mvi Tab) 14:15 Folic Acid Tablet PHA 09/27/24 Logged 14:15 Lorazepam 2mg/Ml Inj PHA 09/27/24 Logged (Ativan Inj) 14:15 Lorazepam 2mg/Ml Inj PHA 09/27/24 Logged (Ativan Inj) 14:15 Lorazepam 2mg/Ml Inj PHA 09/27/24 Logged (Ativan Inj) 14:15 Etoh Withdrawal NEO 09/27/24 In Process Assessment 14:05 Etoh Withdrawal NEO 09/27/24 In Process Assessment 14:05 Seizure Precautions NEO 09/27/[address] 14:05 Comprehensive LAB 09/27/24 Logged Metabolic Panel 16:00 Date of Service: September 27, 2024 Billing Provider: NAHUM FLANAGAN Common Visit Codes: [id number] INP/OBS CARE (HIGH) NAHUM FLANAGAN September 27, 2024 14:24
[2024-09-27 15:18] LABS: Amphetamine Screen, Urine Neg (NEGATIVE); Barbiturate Scree,Urine Neg (NEGATIVE); Benzodiazephine Screen, Urine Neg (NEGATIVE); Cannabinoid Screen, Urine Pos (NEGATIVE); Cocaine Screen, Urine Neg (NEGATIVE); Opiate Scree,Urine Neg (NEGATIVE); Phencyclidine Screen, Urine Neg (NEGATIVE)
[2024-09-27] MEDS: MULTIPLE VITAMIN TAB PO ONE (15:32)
[2024-09-27] MEDS: chlordiazePOXIDE HCL 25 MG CAP PO SCH (15:32)
[2024-09-27] MEDS: FOLIC ACID 1 MG TAB PO ONE (15:32)
[2024-09-27] MEDS: THIAMINE HCL 100 MG TAB PO ONE (15:32)
[2024-09-27] MEDS: LORazepam 2MG/ML-1ML VIAL IV ONE (15:33)
[2024-09-27 16:51] LABS: Albumin 3.4 g/dL (3.2-4.8); Alkaline Phosphatase 94 U/L (46-116); Anion Gap 7 (5-15); BUN/Creatinine Ratio 15.3 (10.0-20.0); Bilirubin, Total 1.2 mg/dL (0.2-1.0); Blood Urea Nitrogen 28 mg/dL (9-23); Calcium 10.2 mg/dL (8.7-10.4); Carbon Dioxide 38 mmol/L (20-31); Chloride 77 mmol/L (98-107); Glucose 132 mg/dL (74-106); Potassium 3.2 mmol/L (3.5-5.1); Sodium 122 mmol/L (136-145); Total Protein 5.8 g/dL (5.7-8.2)
[2024-09-27 16:52] LABS: Alanine Aminotransferase 101 U/L (7-40); Aspartate Aminotransferase 279 U/L (13-40)
[2024-09-27] MEDS: SODIUM CHLORIDE 0.9% 1,000 ML IV SCH (17:45)
[2024-09-27] MEDS: LORazepam 2MG/ML-1ML VIAL IV SCH (18:24)
--- NOTE | 2024-09-27 19:03 | ECG ---
[facility] Test Date: 2024-09-27 Test Time: 11:58:52 Pat Name: VICKI KERN Department: ED Room: [address] [place] [address] Gender: M Information Officer: ITZEL : 1980 Requested By: MARBELLA TURNER Order Number: [id number] Reading MD: Paulie Verdin Measurements Intervals [place] Rate: 124 P: 79 ID: [id number] QRS: 43 QRSD: 93 T: 4 QT: 361 QTc: 519 Interpretive Statements Sinus tachycardia Prolonged QT interval Baseline wander in lead(s) II,III,aVF Electronically Signed On 09-28-2024 21:12:13 PDT by Paulie Verdin Please click the below link to view image of tracing.
[2024-09-27] MEDS: MAGNESIUM SULFATE 1GM/100ML 100 ML IV SCH (19:11)
[2024-09-27 20:01] VITALS: PULSE 116; RESP 16; O2SAT 94
[2024-09-27 22:00] VITALS: RESP 16; O2SAT 94
[2024-09-28 06:49] LABS: Basophils # (auto) 0 10 ^3/uL (0-0.2); Basophils % (auto) 0.2 % (0.0-2.0); Eosinophils # (auto) 0 10 ^3/uL (0-0.8); Eosinophils % (auto) 0.4 % (0.0-7.0); Hematocrit 35.3 % (41.0-53.0); Lymphocytes # (auto) 0.9 10 ^3/uL (0.4-5.4); Lymphocytes % (auto) 16.1 % (10.0-50.0); Mean Corpuscular Hemoglobin 29.7 pg (28.0-32.0); Mean Corpuscular Volume 87.2 fL (80.0-100.0); Monocytes # (auto) 0.7 10 ^3/uL (0-1.3); Monocytes % (auto) 12.3 % (0.0-12.0); Platelet Count (auto) 102 10^3/uL (140-450); Red Blood Cells 4.04 10^6/uL (4.5-5.90); Red Cell Distribution Width 14.2 % (11.8-14.3); White Blood Cell 5.6 10^3/uL (4.4-10.8)
[2024-09-28 06:53] LABS: Albumin 3.6 g/dL (3.2-4.8); Alkaline Phosphatase 102 U/L (46-116); Anion Gap 7 (5-15); Blood Urea Nitrogen 21 mg/dL (9-23); Magnesium 2.2 mg/dL (1.6-2.6); Total Protein 6.2 g/dL (5.7-8.2)
[2024-09-28 06:54] LABS: Bilirubin, Total 0.8 mg/dL (0.2-1.0)
[2024-09-28 06:59] LABS: Alanine Aminotransferase 119 U/L (7-40); Aspartate Aminotransferase 274 U/L (13-40); Blood Alcohol < 3.0 mg/dL (<10); Calcium 10.6 mg/dL (8.7-10.4); Carbon Dioxide 37 mmol/L (20-31); Chloride 85 mmol/L (98-107); Glucose 113 mg/dL (74-106); Sodium 129 mmol/L (136-145)
[2024-09-28 07:06] LABS: Potassium 2.4 mmol/L (3.5-5.1)
[2024-09-28 07:12] LABS: Creatine Kinase IFCC 3158 U/L (46-171)
[2024-09-28 08:00] VITALS: PULSE 89; RESP 19; O2SAT 99
[2024-09-28] MEDS: POTASSIUM EFFERVESENT TAB 25 MEQ PO ONE (09:13)
--- NOTE | 2024-09-28 09:13 | DVHINCON2 ---
Date of service: September 28, 2024 Referring Physician Summer Reason for Consultation Seizure, cyst in central sridevi History of Present Illness Mr. Hankins is a 44 years old gentleman with a history of hypertension, diabetes, anxiety, depression, heavy alcohol consumption, he was brought to the [facility] on 09/27/2024 with a chief complaint of seizure. He was in [facility] in 01/2020 four for alcohol withdrawal At this time, he is in the gurney still, eyes closed, responsive to verbal or touch stimuli sometimes, he moves the head, arms and legs a little bit, but he does not vocalize or responsive to my questions, no family available for the history According to ER note, the patient was drinks liquor heavily, in the last three weeks, one pint daily, before he brought to the ER, the patient was had syncopal event in the leg store, the patient was have company amnesia about this event, but he told ER that he had no history of seizure disorder Hypotension was noticed in the ER [phone], no answer Plasma alcohol, 09/27/2024: 11.4 UDS, 09/27/2024: Cannabinoids Urinalysis, 09/27/2024: Unremarkable WBC/HB/PLT/MCV, 09/28/2024: 5.6/12/102/87.2 Sodium, 09/27/24: 118, 122, 09/28/2024: 128 Potassium, 09/27/2024: 2.5, 3.2, 09/28/2024: 2.4 Lactic acid, 09/27/2024: 8.8, 3.9 BUN/CR, 09/27/2024: 28/1.83, 09/28/2024: 21/1.5 TBI/AST/ALT/AP, 09/27/2024: 1.2/279/101/94, 09/28/2024: 0.8/274/119/102 CT head, 09/27/2024: 1. Nonspecific 1.6 cm cystic focus in the central sridevi. Further evaluation with MRI brain with contrast is recommended. 2. There is no evidence of intracranial hemorrhage CT C-spine, 09/27/2024: 1. No fracture of the cervical spine. 2. 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 Recommend follow-up noncontrast MRI of the cervical spine as there is likely mass effect on the cervical spinal cord at multiple levels. 3. Significant neural foraminal stenos is bilaterally at C5-C6 and C6-C7. These findings May correspond to bilateral upper extremity radicular symptoms in the C6 and C7 nerve root distributions. These would also be better characterized with noncontrast MRI. 4. Tonsillar hypertrophy with mild narrowing of the upper airway. 5. Mild right maxillary sinus disease. The paranasal sinuses are not fully imaged here. Past Medical History Hypertension, diabetes, anxiety, depression Past Surgical History Esophageal varices banding Family History: Arthritis G8 MOTHER FH: hearing loss G8 FATHER Family History Arthritis, deafness Social History Smoker: Non-Smoker Alcohol: Heavy Drugs: Marijuana Lives In: Home Allergies: Coded Allergies: NO KNOWN ALLERGIES (Unverified , 02/05/24) Home Meds Reported Medications Gabapentin (Gabapentin) 300 Mg Cap, 300 MG PO QID, CAP 02/06/24 Current Medications Current Medications Medications (Trade) Dose Ordered Sig/Bruno Route PRN Reason Start Time Stop Time Status Last Admin Acetaminophen (Tylenol Tablet) 650 mg Q6HP PRN PO PAIN SCALE 1-3 OR TEMP>100.4 09/27/24 14:15 Nitroglycerin (Ntrostat Sublingual) 0.4 mg Q5MINP PRN SL FOR CHEST PAIN 09/27/24 14:15 Morphine Sulfate 2 mg Q30M PRN IV FOR CHEST PAIN 09/27/24 14:15 Chlordiazepoxide HCl (Librium Capsule) 50 mg Q8HR PO 09/27/24 14:15 09/28/24 06:01 DC 09/28/24 06:14 Chlordiazepoxide HCl (Librium Capsule) 50 mg Q12H PO 09/28/24 18:00 09/29/24 06:01 Chlordiazepoxide HCl (Librium Capsule) 25 mg Q12H PO 09/29/24 18:00 09/30/24 06:01 Chlordiazepoxide HCl (Librium Capsule) 25 mg QAM PO 10/01/24 07:00 10/01/24 07:01 Thiamine HCl 100 mg DAILY PO 09/28/24 10:00 Folic Acid 1 mg DAILY PO 09/28/24 10:00 Multivitamins (Mvi Tab) 1 tab DAILY PO 09/28/24 10:00 Lorazepam (Ativan Inj) 1 mg Q4H IV 09/27/24 18:00 09/28/24 06:14 Lorazepam (Ativan Inj) 1 mg Q2HPRN PRN IV ETOH-SEE PROTOCOL 09/27/24 14:15 Sodium Chloride 1,000 ml @ 125 mls/hr Q8H IV 09/27/24 17:45 09/28/24 08:51 DC 09/28/24 01:45 Magnesium Sulfate/ Dextrose 100 ml @ 100 mls/hr Q1HR IV 09/27/24 19:00 09/27/24 20:59 DC 09/27/24 19:11 Potassium Chloride/Sodium Chloride 1,000 ml @ 100 mls/hr Q10H IV 09/28/24 09:00 Review of Systems Unobtainable Vital Signs Vital Signs Date Time Temp Pulse Resp B/P (MAP) Pulse Ox O2 Delivery O2 Flow Rate FiO2 09/28/24 08:00 89 19 99 Nasal Cannula* 2 28 09/28/24 08:00 97.8 118/80 (93) 97.8 Physical Exam GENERAL EXAM: General: the patient is well developed and nourished. No acute distress. HEENT: Normocephalic, neck is supple, no carotid bruits. No mass. RESPIRATORY: Normal respiratory effort with symmetrical lung expansion. Lungs clear to auscultation. CARDIOVASCULAR: Regular rate and rhythm with no murmurs. S1, S2. ABDOMEN: Soft, nontender, normal bowel sound MUSCULOSKELETAL EXAM: Bilateral hammertoes NEUROLOGICAL: MENTAL STATUS: See above SPEECH, LANGUAGE, HIGHER CORTICAL FUNCTION: He does not vocalize CRANIAL NERVES: #2: He may be able to see from all the direction. #3,4,6: Pupils are equal, round and reactive. EOMs full and conjugate #5: Facial sensation intact in all three divisions bilaterally. Mandibular strength intact. #7: Facial muscles symmetrical and strength intact. #8: Hearing grossly normal to voice. #9,10: Deferred #11: Deferred #12: Deferred SENSATION: Sensation to touch and pinprick is ok. MOTOR: Normal tone in the upper and lower extremity. Normal muscle bulk. No fasciculations. No abnormal movements or posturing. He can move the arms and legs REFLEXES: Deep tendon reflexes are symmetrical. No pathological reflexes. CEREBELLAR/COORDINATION: Deferred GAIT/STATION: deferred. Labs/Diagnostic Data Labs Test 09/28/24 06:15 09/27/24 14:16 09/27/24 13:08 09/27/24 13:00 Range/Units White Blood Count 5.6 # 4.4-10.8 10^3/uL Red Blood Count 4.04 L 4.5-5.90 10^6/uL Hemoglobin 12.0 #L 13.5-17.5 g/dL Hematocrit 35.3 #L 41.0-53.0 % Mean Corpuscular Volume 87.2 80.0-100.0 fL Mean Corpuscular Hemoglobin 29.7 28.0-32.0 pg Mean Corpuscular Hemoglobin Concent 34.0 32.0-36.0 g/dL Red Cell Distribution Width 14.2 11.8-14.3 % Platelet Count 102 L 140-450 10^3/uL Mean Platelet Volume 9.1 6.9-10.8 fL Neutrophils (%) (Auto) 71.0 37.0-80.0 % Lymphocytes (%) (Auto) 16.1 10.0-50.0 % Monocytes (%) (Auto) 12.3 H 0.0-12.0 % Eosinophils (%) (Auto) 0.4 0.0-7.0 % Basophils (%) (Auto) 0.2 0.0-2.0 % Neutrophils # (Auto) 4.0 1.6-8.6 10 ^3/uL Lymphocytes # (Auto) 0.9 0.4-5.4 10 ^3/uL Monocytes # (Auto) 0.7 0-1.3 10 ^3/uL Eosinophils # (Auto) 0 0-0.8 10 ^3/uL Basophils # (Auto) 0 0-0.2 10 ^3/uL Nucleated Red Blood Cells 0.0 % Sodium Level 129 #L 136-145 mmol/L Potassium Level 2.4 *L 3.5-5.1 mmol/L Chloride Level 85 L 98-107 mmol/L Carbon Dioxide Level 37 H 20-31 mmol/L Anion Gap 7 5-15 Blood Urea Nitrogen 21 9-23 mg/dL Creatinine 1.50 H 0.700-1.30 mg/dL Glomerular Filtration Rate Calc 58 >90 mL/min BUN/Creatinine Ratio 14.0 10.0-20.0 Serum Glucose 113 H 74-106 mg/dL Calcium Level 10.6 H 8.7-10.4 mg/dL Magnesium Level 2.2 1.6-2.6 mg/dL Total Bilirubin 0.8 0.2-1.0 mg/dL Aspartate Amino Transferase (AST) 274 H 13-40 U/L Alanine Aminotransferase (ALT) 119 H 7-40 U/L Alkaline Phosphatase 102 46-116 U/L Creatine Kinase 3158 H 46-171 U/L Total Protein 6.2 5.7-8.2 g/dL Albumin 3.6 3.2-4.8 g/dL Plasma/Serum Blood Alcohol < 3.0 <10 mg/dL Troponin I High Sensitivity 163 *H </=54 ng/L Urine Color Dark yellow Yellow Urine Clarity Turbid H Clear Urine pH 6.5 5.0-9.0 Urine Specific [place] 1.012 1.001-1.035 Urine Protein 1+ H Negative Urine Ketones Negative Negative Urine Blood 3+ H Negative /uL Urine Nitrite Negative Negative Urine Bilirubin Negative Negative Urine Urobilinogen Normal Negative mg/dL Urine Leukocyte Esterase Negative Negative /uL Urine RBC 1 0 - 3 /hpf Urine Microscopic WBC 1 0-3 /HPF Urine Squamous Epithelial Cells None seen <5 /hpf Urine Bacteria None seen None Seen /hpf Urine Hyaline Casts Few 0 - 2 /lpf Urine Glucose Normal Normal mg/dL Urine Opiates Screen Neg NEGATIVE Urine Fentanyl Screen Neg NEGATIVE Urine Barbiturates Screen Neg NEGATIVE Urine Phencyclidine Screen Neg NEGATIVE Urine Amphetamines Screen Neg NEGATIVE Urine Benzodiazepines Screen Neg NEGATIVE Urine Cocaine Screen Neg NEGATIVE Urine Cannabinoids Screen Pos NEGATIVE Lactic Acid Level 3.9 *H 0.4-2.0 mmol/L Assessment Passing out Syncope Seizure Alcoholism Hammertoes, to rule out polyneuropathy Cystic lesion in the pont ? Arachnoid cyst ? Central pontine myelinolysis Hyponatremia Hypokalemia Plan/Recommendation Monitoring Supportive treatment Telemetry Follow-up labs EEG MR head Folic acid supplementation Thiamine supplementation Potassium supplementation Librium Ativan for seizure activity Need to quit alcohol completely More recommendation per clinical Plan discussed with: Other CLAUDINE PRICE MD September 28, 2024 09:13
[2024-09-28] MEDS: SOD CHL 0.9%/ KCL 40MEQ 1,000 ML IV SCH (09:14)
[2024-09-28] MEDS: THIAMINE HCL 100 MG TAB PO SCH (09:56)
[2024-09-28] MEDS: FOLIC ACID 1 MG TAB PO SCH (09:56)
[2024-09-28] MEDS: MULTIPLE VITAMIN TAB PO SCH (09:56)
[2024-09-28] MEDS ORDERED: LORazepam 2MG/ML-1ML VIAL IV PRN ×2 (10:15)
--- NOTE | 2024-09-28 13:28 | DVHPN2 ---
Subjective 44-year-old male with a history of alcoholism comes with chief complaint of a seizure apparently he has been drinking heavy for 3 weeks On admission here he is sodium was 118, potassium 2.5, creatinine 2.1, calcium 14, lactic acid 8.8, troponin 156 Changes from previous H/P or p: Changes Eyes: No Pain, No Vision change, No Conjunctivae inflammation, No Eyelid inflammation, No Other, No Redness ENT: No Ear pain, No Ear discharge, No Nose pain, No Nose discharge, No Nose congestion, No Mouth pain, No Mouth swelling, No Throat pain, No Throat swelling, No Other Cardiovascular: No Chest Pain, No Palpitations, No Orthopnea, No Paroxysmal Noc. Dyspnea, No Edema, No Lt Headedness, No Other Respiratory: No Cough, No Dry, No Shortness of breath, No SOB with excertion, No Wheezing, No Hemoptysis, No Pleuritic Pain, No Sputum, No Other Gastrointestinal: No Nausea, No Vomiting, No Abdominal Pain, No Diarrhea, No Constipation, No Melena, No Hematochezia, No Other Genitourinary: No Dysuria, No Frequency, No Incontinence, No Hematuria, No Retention, No Other Musculoskeletal: No other, No neck pain, No shoulder pain, No arm pain, No back pain, No hand pain, No leg pain, No foot pain Skin: No Rash, No Lesions, No Jaundice, No Bruising, No Other Objective Vitals Vital Signs Date Time Temp Pulse Resp B/P (MAP) Pulse Ox O2 Delivery O2 Flow Rate FiO2 09/28/24 12:30 98.1 108 16 133/92 (106) 97 98.1 09/28/24 08:00 Nasal Cannula* 2 28 Intake/Output Intake and Output 09/28/24 07:00 Intake Total 375 ml Balance 375 ml Intake IV Total 375 ml General Appearance: Alert, Oriented X3 Lungs: Clear to auscultation, Normal air movement Cardiovascular: Regular rate, Normal S1 Abdomen: Normal bowel sounds, Soft, No tenderness Extremities: No edema Medications Current Medications Medications Dose Ordered Sig/Bruno Route Start Time Stop Time Status Last Admin Dose Admin Acetaminophen 650 mg Q6HP PRN PO 09/27/24 14:15 Nitroglycerin 0.4 mg Q5MINP PRN SL 09/27/24 14:15 Morphine Sulfate 2 mg Q30M PRN IV 09/27/24 14:15 Chlordiazepoxide HCl 50 mg Q12H PO 09/28/24 18:00 09/29/24 06:01 Chlordiazepoxide HCl 25 mg Q12H PO 09/29/24 18:00 09/30/24 06:01 Chlordiazepoxide HCl 25 mg QAM PO 10/01/24 07:00 10/01/24 07:01 Thiamine HCl 100 mg DAILY PO 09/28/24 10:00 09/28/24 09:56 100 MG Folic Acid 1 mg DAILY PO 09/28/24 10:00 09/28/24 09:56 1 MG Multivitamins 1 tab DAILY PO 09/28/24 10:00 09/28/24 09:56 1 TAB Lorazepam 1 mg Q4H IV 09/27/24 18:00 09/28/24 09:56 1 MG Lorazepam 1 mg Q2HPRN PRN IV 09/27/24 14:15 Potassium Chloride/Sodium Chloride 1,000 ml @ 100 mls/hr Q10H IV 09/28/24 09:00 09/28/24 09:14 100 MLS/HR Lorazepam 1 mg ONCE PRN IV 09/28/24 10:15 Lorazepam 1 mg Q5MINP PRN IV 09/28/24 10:15 Laboratory Results Laboratory Tests 09/28/24 06:15 Chemistry Test 09/27/24 16:18 09/28/24 06:15 Albumin 3.4 g/dL (3.2-4.8) 3.6 g/dL (3.2-4.8) Calcium Level 10.2 mg/dL (8.7-10.4) 10.6 mg/dL (8.7-10.4) H Total Protein 5.8 g/dL (5.7-8.2) 6.2 g/dL (5.7-8.2) Magnesium Level 2.2 mg/dL (1.6-2.6) LFT Test 09/27/24 16:18 09/28/24 06:15 Alanine Aminotransferase (ALT) 101 U/L (7-40) H 119 U/L (7-40) H Alkaline Phosphatase 94 U/L (46-116) 102 U/L (46-116) Aspartate Amino Transferase (AST) 279 U/L (13-40) H 274 U/L (13-40) H Total Bilirubin 1.2 mg/dL (0.2-1.0) H 0.8 mg/dL (0.2-1.0) Urinalysis Test 09/27/24 13:08 Urine Color Dark yellow (Yellow) Urine Clarity Turbid (Clear) H Urine pH 6.5 (5.0-9.0) Urine Specific [place] 1.012 (1.001-1.035) Urine Protein 1+ (Negative) H Urine Ketones Negative (Negative) Urine Blood 3+ /uL (Negative) H Urine Nitrite Negative (Negative) Urine Bilirubin Negative (Negative) Urine Urobilinogen Normal mg/dL (Negative) Urine Leukocyte Esterase Negative /uL (Negative) Urine RBC 1 /hpf (0 - 3) Urine Microscopic WBC 1 /HPF (0-3) Urine Squamous Epithelial Cells None seen /hpf (<5) Urine Bacteria None seen /hpf (None Seen) Urine Hyaline Casts Few /lpf (0 - 2) Urine Glucose Normal mg/dL (Normal) Microbiology Microbiology Date/Time Source Procedure Growth Status 09/27/24 13:00 Blood Blood Culture - Preliminary NO GROWTH AFTER 24 HOURS OF INCUBATION. Resulted Assessment/Plan Assessment/Plan Seizures due to alcohol withdrawal Acute metabolic encephalopathy Alcohol dependence Alcohol withdrawal Hyponatremia Hypokalemia Hypercalcemia Acute kidney injury due to vasomotor nephropathy Dehydration Hypomagnesemia Alcoholic hepatitis NSTEMI most likely type 2 Cervical spinal canal stenosis Plan The OU IV fluids normal saline with potassium Multivitamins Thiamine Folic acid Librium and Ativan for alcohol withdrawal MRI of the brain is still pending Seizure precautions Monitor closely Full code Advance directives discussed for 15 minute Plan discussed with: Patient Date of Service: September 28, 2024 Billing Provider: SINCERE DAVENPORT MD Common Visit Codes: [id number] INP/OBS CARE(HIGH) Secondary Visit Codes: [id number] CARE PLAN 30 MINUTES SINCERE DAVENPORT MD September 28, 2024 13:28
--- NOTE | 2024-09-28 13:41 | DVH ---
PROCEDURE: MRI BRAIN HEAD WO CONTRAST Indication: Abnormal CT brain COMPARISON: None TECHNIQUE: Multiplanar multisequence images of the brain are obtained. FINDINGS: There is no abnormal diffusion restriction. There is no intracranial hemorrhage. 1.4 x 1.3 cm T2 brig ht lesion within the central aspect of the sridevi corresponding to the lesion seen on prior CT. No sign ificant perilesional edema seen. Mild volume loss. No extra-axial fluid collection, mass effect or mi dline shift. The ventricles are midline and normal in size. The cisterns are patent. Normal intracran ial flow voids are preserved. No abnormal susceptibility signal. Bilateral basal ganglia perivascular spaces more pronounced on the left. The mastoids demonstrate tiny bilateral effusions. Right maxillary sinus mucosal thickening. The vis ualized orbits are unremarkable. IMPRESSION: 1. No acute cerebrovascular ischemia. 2. T2 bright lesion in the central sridevi corresponding to the previously described lesion measuring 1. 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 Recommend MRI brain with contrast now to ensure that there is no abnormal enhancement. A dditionally, recommend follow-up MRI brain with and without contrast in 3 months to ensure stability and exclude any type of other lesions /aggressive process.
[2024-09-28] MEDS: chlordiazePOXIDE HCL 25 MG CAP PO SCH (18:04)
[2024-09-28 19:00] VITALS: BP 144/105; PULSE 105; RESP 17; O2SAT 97
[2024-09-28 20:00] VITALS: PULSE 82; RESP 24; O2SAT 93
[2024-09-28 21:00] VITALS: BP 123/94; PULSE 109; RESP 12; O2SAT 95
[2024-09-28 22:00] VITALS: BP 136/88; PULSE 98; RESP 31; O2SAT 93
[2024-09-28 23:00] VITALS: BP 125/97; PULSE 98; RESP 19; O2SAT 89
[2024-09-29] VITALS (9 sets, daily range): BP systolic 109–142; BP diastolic 85–105; PULSE 100–123; RESP 15–21; TEMP 97.9–100.5; O2SAT 93–97
[2024-09-29 05:29] LABS: Basophils # (auto) 0 10 ^3/uL (0-0.2); Basophils % (auto) 0.6 % (0.0-2.0); Eosinophils # (auto) 0 10 ^3/uL (0-0.8); Eosinophils % (auto) 0.9 % (0.0-7.0); Hematocrit 33.1 % (41.0-53.0); Hemoglobin 11.4 g/dL (13.5-17.5); Lymphocytes # (auto) 1.2 10 ^3/uL (0.4-5.4); Lymphocytes % (auto) 23.7 % (10.0-50.0); Mean Corpuscular Hgb Conc. 34.4 g/dL (32.0-36.0); Mean Corpuscular Volume 87.2 fL (80.0-100.0); Monocytes # (auto) 0.8 10 ^3/uL (0-1.3); Monocytes % (auto) 14.6 % (0.0-12.0); Neutrophils # (auto) 3.1 10 ^3/uL (1.6-8.6); Neutrophils % (auto) 60.2 % (37.0-80.0); Nucleated Red Blood Cells % 0.2 %; Platelet Count (auto) 154 10^3/uL (140-450); Red Blood Cells 3.79 10^6/uL (4.5-5.90); Red Cell Distribution Width 13.7 % (11.8-14.3); White Blood Cell 5.2 10^3/uL (4.4-10.8)
[2024-09-29 05:39] LABS: Albumin 3.6 g/dL (3.2-4.8); Alkaline Phosphatase 105 U/L (46-116); Anion Gap 5 (5-15); BUN/Creatinine Ratio 13.6 (10.0-20.0); Bilirubin, Total 0.5 mg/dL (0.2-1.0); Blood Urea Nitrogen 19 mg/dL (9-23); Calcium 9.5 mg/dL (8.7-10.4); Cholesterol 106 mg/dL (< 200); HDL Cholesterol 47 mg/dL (40-59); LDL Cholesterol 40 mg/dL (< 100); Magnesium 1.9 mg/dL (1.6-2.6); Triglycerides 76 mg/dL (< 150)
[2024-09-29 05:48] LABS: Alanine Aminotransferase 111 U/L (7-40); Aspartate Aminotransferase 166 U/L (13-40); Carbon Dioxide 33 mmol/L (20-31); Chloride 94 mmol/L (98-107); Glucose 183 mg/dL (74-106); Potassium 2.8 mmol/L (3.5-5.1); Sodium 132 mmol/L (136-145)
[2024-09-29 06:25] LABS: Lipase 38 U/L (12-53)
[2024-09-29] MEDS: POTASSIUM CHL 20 Meq TABLET PO ONE ×2 (07:03→17:57)
--- NOTE | 2024-09-29 17:47 | DVHPN2 ---
Subjective Feels better Changes from previous H/P or p: Changes Eyes: No Pain, No Vision change, No Conjunctivae inflammation, No Eyelid inflammation, No Other, No Redness ENT: No Ear pain, No Ear discharge, No Nose pain, No Nose discharge, No Nose congestion, No Mouth pain, No Mouth swelling, No Throat pain, No Throat swelling, No Other Cardiovascular: No Chest Pain, No Palpitations, No Orthopnea, No Paroxysmal Noc. Dyspnea, No Edema, No Lt Headedness, No Other Respiratory: No Cough, No Dry, No Shortness of breath, No SOB with excertion, No Wheezing, No Hemoptysis, No Pleuritic Pain, No Sputum, No Other Gastrointestinal: No Nausea, No Vomiting, No Abdominal Pain, No Diarrhea, No Constipation, No Melena, No Hematochezia, No Other Genitourinary: No Dysuria, No Frequency, No Incontinence, No Hematuria, No Retention, No Other Musculoskeletal: No other, No neck pain, No shoulder pain, No arm pain, No back pain, No hand pain, No leg pain, No foot pain Skin: No Rash, No Lesions, No Jaundice, No Bruising, No Other Objective Vitals Vital Signs Date Time Temp Pulse Resp B/P (MAP) Pulse Ox O2 Delivery O2 Flow Rate FiO2 09/29/24 16:36 100.5 105 18 120/87 (98) 96 100.5 09/29/24 07:30 Nasal Cannula* 2 28 Intake/Output Intake and Output 09/29/24 07:00 Intake Total 2175 ml Balance 2175 ml Intake IV Total 2175 ml General Appearance: Alert, Oriented X3 Lungs: Clear to auscultation, Normal air movement Cardiovascular: Regular rate, Normal S1 Abdomen: Normal bowel sounds, Soft, No tenderness Extremities: No edema Medications Current Medications Medications Dose Ordered Sig/Bruno Route Start Time Stop Time Status Last Admin Dose Admin Acetaminophen 650 mg Q6HP PRN PO 09/27/24 14:15 Nitroglycerin 0.4 mg Q5MINP PRN SL 09/27/24 14:15 Morphine Sulfate 2 mg Q30M PRN IV 09/27/24 14:15 Chlordiazepoxide HCl 25 mg Q12H PO 09/29/24 18:00 09/30/24 06:01 Chlordiazepoxide HCl 25 mg QAM PO 10/01/24 07:00 10/01/24 07:01 Thiamine HCl 100 mg DAILY PO 09/28/24 10:00 09/29/24 10:06 100 MG Folic Acid 1 mg DAILY PO 09/28/24 10:00 09/29/24 10:06 1 MG Multivitamins 1 tab DAILY PO 09/28/24 10:00 09/29/24 10:06 1 TAB Lorazepam 1 mg Q4H IV 09/27/24 18:00 09/29/24 10:07 1 MG Lorazepam 1 mg Q2HPRN PRN IV 09/27/24 14:15 Potassium Chloride/Sodium Chloride 1,000 ml @ 100 mls/hr Q10H IV 09/28/24 09:00 09/29/24 15:07 100 MLS/HR Lorazepam 1 mg ONCE PRN IV 09/28/24 10:15 Lorazepam 1 mg Q5MINP PRN IV 09/28/24 10:15 Laboratory Results Laboratory Tests 09/29/24 04:50 09/29/24 12:50 Chemistry Test 09/29/24 04:50 Albumin 3.6 g/dL (3.2-4.8) Calcium Level 9.5 mg/dL (8.7-10.4) Magnesium Level 1.9 mg/dL (1.6-2.6) Total Protein 6.0 g/dL (5.7-8.2) Lipid panel Test 09/29/24 04:50 Cholesterol Level 106 mg/dL (< 200) HDL Cholesterol 47 mg/dL (40-59) Lipase 38 U/L (12-53) Triglycerides Level 76 mg/dL (< 150) LFT Test 09/29/24 04:50 Alanine Aminotransferase (ALT) 111 U/L (7-40) H Alkaline Phosphatase 105 U/L (46-116) Aspartate Amino Transferase (AST) 166 U/L (13-40) H Total Bilirubin 0.5 mg/dL (0.2-1.0) HgA1c, TSH Test 09/29/24 04:50 Hemoglobin A1c 6.2 % A1C (<5.7) H Thyroid Stimulating Hormone (TSH) 0.43 uIU/mL (0.55-4.78) L Urinalysis Test 09/27/24 13:08 Urine Color Dark yellow (Yellow) Urine Clarity Turbid (Clear) H Urine pH 6.5 (5.0-9.0) Urine Specific [place] 1.012 (1.001-1.035) Urine Protein 1+ (Negative) H Urine Ketones Negative (Negative) Urine Blood 3+ /uL (Negative) H Urine Nitrite Negative (Negative) Urine Bilirubin Negative (Negative) Urine Urobilinogen Normal mg/dL (Negative) Urine Leukocyte Esterase Negative /uL (Negative) Urine RBC 1 /hpf (0 - 3) Urine Microscopic WBC 1 /HPF (0-3) Urine Squamous Epithelial Cells None seen /hpf (<5) Urine Bacteria None seen /hpf (None Seen) Urine Hyaline Casts Few /lpf (0 - 2) Urine Glucose Normal mg/dL (Normal) Microbiology Microbiology Date/Time Source Procedure Growth Status 09/27/24 13:00 Blood Blood Culture - Preliminary NO GROWTH AFTER 48 HOURS OF INCUBATION. Resulted Assessment/Plan Assessment/Plan Seizures due to alcohol withdrawal Acute metabolic encephalopathy Alcohol dependence Alcohol withdrawal Hyponatremia Hypokalemia Hypercalcemia Acute kidney injury due to vasomotor nephropathy Dehydration Hypomagnesemia Alcoholic hepatitis NSTEMI most likely type 2 Cervical spinal canal stenosis Plan The OU IV fluids normal saline with potassium Multivitamins Thiamine Folic acid Librium and Ativan for alcohol withdrawal MRI of the brain is still pending Seizure precautions Monitor closely Full code Advance directives discussed for 15 minute 09/29/24: Continue IV fluids with K+ Librium Ativan Thiamine MVI Folic acid Downgrade to Tele Plan discussed with: Patient My Orders Orders - SINCERE DAVENPORT MD Procedure Category Date Status Time Mrsa Screen GAUDENCIO 09/29/24 In Process 12:10 Transfer Orders XFER 09/29/24 Transmitted 14:51 Dietary NOTICE 09/29/24 Transmitted Recommendations 15:54 Date of Service: September 29, 2024 Billing Provider: SINCERE DAVENPORT MD Common Visit Codes: [id number] INP/OBS CARE(HIGH) SINCERE DAVENPROT MD September 29, 2024 17:47
[2024-09-29] MEDS: chlordiazePOXIDE HCL 25 MG CAP PO SCH (17:58)
[2024-09-30] VITALS (10 sets, daily range): BP systolic 102–152; BP diastolic 59–88; PULSE 94–110; RESP 16–20; TEMP 97.6–100.8; O2SAT 95–100
--- NOTE | 2024-09-30 00:12 | DVHEEG2 ---
Neurology EEG Procedural Note Procedural Note EXAM DATE: 09/29/24 REFERRING DOCTOR: Dr. Price TECHNIQUE: Eighteen channels of EEG, 2 channels of EOG, and 1 channel of EKG were recorded using the International 10/20 system. CLINICAL DATA: The patient was referred for an EEG evaluation for the evidence of seizure disorder. MEDICATIONS: See chart BACKGROUND ACTIVITY: There was significant amount of electrode artifacts in the recording. There was diffuse low amplitude rhythmic beta activity over both hemispheres that was reactive to external stimuli ACTIVATION: Hyperventilation: Not done Photic Stimulation: Not done Sleep: Not seen IMPRESSION: This is an inadequate, but likely unremarkable EEG. The diffuse low amplitude beta activity is medication effects of benzodiazepine or phenobarbital, please correlate clinically The EKG channel showed a regular heart rate of 102/[place] [address] CLAUDINE PRICE MD September 30, 2024 00:12
[2024-09-30] MEDS ORDERED: LORazepam 2MG/ML-1ML VIAL IV PRN (00:15)
[2024-09-30 07:37] LABS: Albumin 3.8 g/dL (3.2-4.8); Alkaline Phosphatase 99 U/L (46-116); Anion Gap 9 (5-15); BUN/Creatinine Ratio 11.6 (10.0-20.0); Blood Urea Nitrogen 14 mg/dL (9-23); Calcium 9.7 mg/dL (8.7-10.4); Carbon Dioxide 26 mmol/L (20-31); Chloride 99 mmol/L (98-107); Magnesium 1.9 mg/dL (1.6-2.6); Total Protein 6.4 g/dL (5.7-8.2)
[2024-09-30 07:38] LABS: Bilirubin, Total 0.4 mg/dL (0.2-1.0)
[2024-09-30 07:44] LABS: Alanine Aminotransferase 97 U/L (7-40); Aspartate Aminotransferase 101 U/L (13-40); Glucose 112 mg/dL (74-106); Potassium 3.5 mmol/L (3.5-5.1); Sodium 134 mmol/L (136-145)
[2024-09-30 08:11] LABS: Hematocrit 36.1 % (41.0-53.0); Hemoglobin 12.4 g/dL (13.5-17.5); Mean Corpuscular Hemoglobin 30.3 pg (28.0-32.0); Mean Corpuscular Hgb Conc. 34.4 g/dL (32.0-36.0); Mean Corpuscular Volume 88.2 fL (80.0-100.0); Platelet Count (auto) 177 10^3/uL (140-450); Red Blood Cells 4.09 10^6/uL (4.5-5.90); Red Cell Distribution Width 14.3 % (11.8-14.3); White Blood Cell 6.8 10^3/uL (4.4-10.8)
[2024-09-30 08:16] LABS: Basophils % (manual) 0 (0.0-2.0); Blast Cells 0; Metamyelocytes % 0; Myelocytes % 0; Promyelocytes % 0; Reactive Lymphocytes 0
[2024-09-30 09:02] LABS: Band Neutrophils % (manual) 4; Eosinophils % (manual) 2 (0-7); Lymphocytes % (manual) 35 (10.0-50.0); Monocytes % (manual) 7 (0-12); Platelet Estimate Adequate
--- NOTE | 2024-09-30 10:15 | DVHPN2 ---
Subjective Feels better Sleepy Changes from previous H/P or p: Changes Eyes: No Pain, No Vision change, No Conjunctivae inflammation, No Eyelid inflammation, No Other, No Redness ENT: No Ear pain, No Ear discharge, No Nose pain, No Nose discharge, No Nose congestion, No Mouth pain, No Mouth swelling, No Throat pain, No Throat swelling, No Other Cardiovascular: No Chest Pain, No Palpitations, No Orthopnea, No Paroxysmal Noc. Dyspnea, No Edema, No Lt Headedness, No Other Respiratory: No Cough, No Dry, No Shortness of breath, No SOB with excertion, No Wheezing, No Hemoptysis, No Pleuritic Pain, No Sputum, No Other Gastrointestinal: No Nausea, No Vomiting, No Abdominal Pain, No Diarrhea, No Constipation, No Melena, No Hematochezia, No Other Genitourinary: No Dysuria, No Frequency, No Incontinence, No Hematuria, No Retention, No Other Musculoskeletal: No other, No neck pain, No shoulder pain, No arm pain, No back pain, No hand pain, No leg pain, No foot pain Skin: No Rash, No Lesions, No Jaundice, No Bruising, No Other Objective Vitals Vital Signs Date Time Temp Pulse Resp B/P (MAP) Pulse Ox O2 Delivery O2 Flow Rate FiO2 09/30/24 08:10 107 16 96 Room Air* 0 21 09/30/24 05:00 97.6 152/88 (109) 97.6 Intake/Output Intake and Output 09/30/24 07:00 Intake Total 1240 ml Output Total 900 ml Balance 340 ml Intake Oral 640 ml IV Total 600 ml Output Urine Total 900 ml # Voids 1 # Bowel Movements 2 General Appearance: Alert, Oriented X3 Lungs: Clear to auscultation, Normal air movement Cardiovascular: Regular rate, Normal S1 Abdomen: Normal bowel sounds, Soft, No tenderness Extremities: No edema Medications Current Medications Medications Dose Ordered Sig/Bruno Route Start Time Stop Time Status Last Admin Dose Admin Acetaminophen 650 mg Q6HP PRN PO 09/27/24 14:15 Nitroglycerin 0.4 mg Q5MINP PRN SL 09/27/24 14:15 Morphine Sulfate 2 mg Q30M PRN IV 09/27/24 14:15 Chlordiazepoxide HCl 25 mg QAM PO 10/01/24 07:00 10/01/24 07:01 Thiamine HCl 100 mg DAILY PO 09/28/24 10:00 09/29/24 10:06 100 MG Folic Acid 1 mg DAILY PO 09/28/24 10:00 09/29/24 10:06 1 MG Multivitamins 1 tab DAILY PO 09/28/24 10:00 09/29/24 10:06 1 TAB Lorazepam 1 mg Q4H IV 09/27/24 18:00 09/30/24 05:18 1 MG Lorazepam 1 mg Q2HPRN PRN IV 09/27/24 14:15 Potassium Chloride/Sodium Chloride 1,000 ml @ 100 mls/hr Q10H IV 09/28/24 09:00 09/30/24 00:40 100 MLS/HR Lorazepam 1 mg ONCE PRN IV 09/28/24 10:15 Lorazepam 1 mg Q5MINP PRN IV 09/28/24 10:15 Lorazepam 1 mg ONCE PRN IV 09/30/24 00:15 Laboratory Results Laboratory Tests 09/30/24 05:30 Chemistry Test 09/30/24 05:30 Albumin 3.8 g/dL (3.2-4.8) Calcium Level 9.7 mg/dL (8.7-10.4) Magnesium Level 1.9 mg/dL (1.6-2.6) Total Protein 6.4 g/dL (5.7-8.2) LFT Test 09/30/24 05:30 Alanine Aminotransferase (ALT) 97 U/L (7-40) H Alkaline Phosphatase 99 U/L (46-116) Aspartate Amino Transferase (AST) 101 U/L (13-40) H Total Bilirubin 0.4 mg/dL (0.2-1.0) Urinalysis Test 09/27/24 13:08 Urine Color Dark yellow (Yellow) Urine Clarity Turbid (Clear) H Urine pH 6.5 (5.0-9.0) Urine Specific [place] 1.012 (1.001-1.035) Urine Protein 1+ (Negative) H Urine Ketones Negative (Negative) Urine Blood 3+ /uL (Negative) H Urine Nitrite Negative (Negative) Urine Bilirubin Negative (Negative) Urine Urobilinogen Normal mg/dL (Negative) Urine Leukocyte Esterase Negative /uL (Negative) Urine RBC 1 /hpf (0 - 3) Urine Microscopic WBC 1 /HPF (0-3) Urine Squamous Epithelial Cells None seen /hpf (<5) Urine Bacteria None seen /hpf (None Seen) Urine Hyaline Casts Few /lpf (0 - 2) Urine Glucose Normal mg/dL (Normal) Microbiology Microbiology Date/Time Source Procedure Growth Status 09/27/24 13:00 Blood Blood Culture - Preliminary NO GROWTH AFTER 48 HOURS OF INCUBATION. Resulted Assessment/Plan Assessment/Plan Seizures due to alcohol withdrawal Acute metabolic encephalopathy Alcohol dependence Alcohol withdrawal Hyponatremia Hypokalemia Hypercalcemia Acute kidney injury due to vasomotor nephropathy Dehydration Hypomagnesemia Alcoholic hepatitis NSTEMI most likely type 2 Cervical spinal canal stenosis Plan The OU IV fluids normal saline with potassium Multivitamins Thiamine Folic acid Librium and Ativan for alcohol withdrawal MRI of the brain is still pending Seizure precautions Monitor closely Full code Advance directives discussed for 15 minute 09/29/24: Continue IV fluids with K+ Librium Ativan Thiamine MVI Folic acid Downgrade to Tele 09/30/2024: Continue IV fluids with potassium Continue lorazepam and Librium as needed Multivitamins Monitor closely The rest of the management will depend on the hospital course Plan discussed with: Patient My Orders Orders - SINCERE DAVENPORT MD Procedure Category Date Status Time Mrsa Screen GAUDENCIO 09/29/24 In Process 12:10 Transfer Orders XFER 09/29/24 Transmitted 14:51 Dietary NOTICE 09/29/24 Transmitted Recommendations 15:54 Date of Service: September 30, 2024 Billing Provider: SINCERE DAVENPORT MD Common Visit Codes: [id number] INP/OBS CARE(HIGH) SINCERE DAVENPORT MD September 30, 2024 10:15
[2024-09-30] MEDS: LORazepam 2MG/ML-1ML VIAL IV PRN (11:33)
--- NOTE | 2024-09-30 19:54 | DVH ---
EXAM: MRI BRAIN HEAD WO W CONTRAST INDICATION: Abnormal MR brain TECHNIQUE: Multiplanar, multisequence imaging of the brain with contrast. COMPARISON: MRI BRAIN HEAD WO CONTRAST on DOS: 09/28/24 FINDINGS: [PARENCHYMA]: In regards to the clinical question, no abnormal enhancement involving the cystic struc ture located within the central aspect of the sridevi. No leptomeningeal or pachymeningeal enhancement. [VENTRICLES]: No hydrocephalus. [EXTRA-AXIAL SPACES]: No extra-axial fluid collections. [EXTRA-CRANIAL STRUCTURES]: The bony structures are intact. IMPRESSION: 1. In regards to the clinical question, no abnormal enhancement involving the cystic structure locate d within the central aspect of the sridevi.
--- NOTE | 2024-09-30 22:56 | DVHPN2 ---
Progress Note - Dictate Date Seen: September 30, 2024 Medical Necessity Reason Pt with a Central, PICC or Fol: No Subjective Mr. Hankins is a 44 years old gentleman with a history of hypertension, diabetes, anxiety, depression, heavy alcohol consumption, he was brought to the [facility] on 09/27/2024 with a chief complaint of seizure. He was in [facility] in 01/2020 four for alcohol withdrawal I have seen and examined the patient, sitter in the room with him, he was in the bed, reading his smart phone, oriented x4, but is not a very good historian He confirm a history of alcohol abuse and recently heavy alcohol He looks depressed and he confirmed having depression, but he was not ready to see a psychiatrist/tele psychiatry He may not be very motivated to complete quit his out He denies a history of paresthesia in the lower extremities He reports normal gait Plasma alcohol, 09/27/2024: 11.4 UDS, 09/27/2024: Cannabinoids Urinalysis, 09/27/2024: Unremarkable WBC/HB/PLT/MCV, 09/28/2024: 5.6/12/102/87.2 Sodium, 09/27/24: 118, 122, 09/28/2024: 128 Potassium, 09/27/2024: 2.5, 3.2, 09/28/2024: 2.4 Lactic acid, 09/27/2024: 8.8, 3.9 EEG 09/29/2024: This is an inadequate, but likely unremarkable EEG BUN/CR, 09/27/2024: 28/1.83, 09/28/2024: 21/1.5 TBI/AST/ALT/AP, 09/27/2024: 1.2/279/101/94, 09/28/2024: 0.8/274/119/102 CT head, 09/27/2024: 1. Nonspecific 1.6 cm cystic focus in the central sridevi. Further evaluation with MRI brain with contrast is recommended. 2. There is no evidence of intracranial hemorrhage CT C-spine, 09/27/2024: 1. No fracture of the cervical spine. 2. 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 Recommend follow-up noncontrast MRI of the cervical spine as there is likely mass effect on the cervical spinal cord at multiple levels. 3. Significant neural foraminal stenosis bilaterally at C5-C6 and C6-C7. These findings May correspond to bilateral upper extremity radicular symptoms in the C6 and C7 nerve root distributions. These would also be better characterized with noncontrast MRI. 4. Tonsillar hypertrophy with mild narrowing of the upper airway. 5. Mild right maxillary sinus disease. The paranasal sinuses are not fully imaged here. MR head, 09/28/2024: 1. No acute cerebrovascular ischemia. 2. 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 Recommend MRI brain with contrast now to ensure that there is no abnormal enhancement. Additionally, recommend follow-up MRI brain with and without contrast in 3 months to ensure stability and exclude any type of other lesions /aggressive process MRI head w, 09/30/2024: In regards to the clinical question, no abnormal enhancement involving the cystic structure located within the central aspect of the sridevi vital signs Vital Sign Date Time Temp Pulse Resp B/P (MAP) Pulse Ox O2 Delivery O2 Flow Rate FiO2 09/30/24 17:05 99.0 108 16 128/77 (94) 97 99.0 09/30/24 08:10 Room Air* 0 21 Total Intake and Output 09/29/24 09/29/24 09/30/24 15:00 23:00 07:00 Intake Total 240 ml 1000 ml Output Total 200 ml 700 ml Balance 40 ml 300 ml medications Current Medications Medications Dose Ordered Sig/Bruno Route Start Time Stop Time Status Last Admin Dose Admin Acetaminophen 650 mg Q6HP PRN PO 09/27/24 14:15 Nitroglycerin 0.4 mg Q5MINP PRN SL 09/27/24 14:15 Morphine Sulfate 2 mg Q30M PRN IV 09/27/24 14:15 Chlordiazepoxide HCl 25 mg QAM PO 10/01/24 07:00 10/01/24 07:01 Thiamine HCl 100 mg DAILY PO 09/28/24 10:00 09/30/24 10:11 100 MG Folic Acid 1 mg DAILY PO 09/28/24 10:00 09/30/24 10:11 1 MG Multivitamins 1 tab DAILY PO 09/28/24 10:00 09/30/24 10:11 1 TAB Lorazepam 1 mg Q4H IV 09/27/24 18:00 09/30/24 21:41 1 MG Lorazepam 1 mg Q2HPRN PRN IV 09/27/24 14:15 09/30/24 11:33 1 MG Potassium Chloride/Sodium Chloride 1,000 ml @ 100 mls/hr Q10H IV 09/28/24 09:00 09/30/24 10:58 100 MLS/HR Lorazepam 1 mg ONCE PRN IV 09/28/24 10:15 Lorazepam 1 mg Q5MINP PRN IV 09/28/24 10:15 Lorazepam 1 mg ONCE PRN IV 09/30/24 00:15 objective General: the patient is well developed and nourished. No acute distress. MUSCULOSKELETAL EXAM: [facility] MENTAL STATUS: Subjective SPEECH, LANGUAGE, HIGHER CORTICAL FUNCTION: No aphasia or dysarthria CRANIAL NERVES: Pupils are equal, round and reactive. EOMs full and conjugate Facial sensation intact in all three divisions bilaterally. Mandibular strength intact. Facial muscles symmetrical and strength intact. SENSATION: Sensation to touch and pinprick is fine MOTOR: Normal tone in the upper and lower extremity. Normal muscle bulk. No fasciculations. No abnormal movements or posturing. He can move the arms and legs REFLEXES: Deep tendon reflexes are symmetrical. No pathological reflexes. CEREBELLAR/COORDINATION: Deferred GAIT/STATION: deferred. laboratory and microbiology Laboratory Tests 09/30/24 05:30 Test 09/30/24 05:30 Range/Units Serum Glucose 112 H 74-106 mg/dL Problem List Passing out Syncope Seizure Alcoholism [facility], to rule out polyneuropathy Cystic lesion in the sridevi ? Arachnoid cyst ? Central pontine myelinolysis Hyponatremia Hypokalemia Depression Assessment/Plan Monitoring Supportive treatment Telemetry Follow-up labs Folic acid supplementation Thiamine supplementation Potassium supplementation Librium Ativan for seizure activity Need to quit alcohol completely More recommendation per clinical This medical document was created using an electronic medical record system with [employer] dictation system. Although this document has been carefully reviewed, there may still be some phonetic and typographical errors. These areas are purely typographical due to imperfections of the software programs, and do not reflect any compromise in the patient's medical care. Prognosis poor Dietary Evaluation Review Comments: 1) CCHO 60gm + 2gm Na 2) Refer CDE on DC 3) Continue current POC Expected Outcomes/Goals: Pt will meet 75% estimated needs GI symptoms to improve FU 3-5 days Plan discussed with: Patient, Other Total Time (mins): 35 CLAUDINE PRICE MD September 30, 2024 22:56
[2024-10-01] VITALS (8 sets, daily range): BP systolic 110–125; BP diastolic 65–89; PULSE 91–118; RESP 18–20; TEMP 98.1–100.9; O2SAT 98–100
[2024-10-01] MEDS: ACETAMINOPHEN 325 MG TAB PO PRN (02:16)
[2024-10-01] MEDS: chlordiazePOXIDE HCL 25 MG CAP PO SCH (06:30)
[2024-10-01] MEDS: GADOTERATE MEG 10 MMOL/20ml INJ (0.5MMOL/ml) IV ONE (07:25)
[2024-10-01 10:42] LABS: Chloride 106 mmol/L (98-107); Potassium 4.3 mmol/L (3.5-5.1)
[2024-10-01 10:43] LABS: Anion Gap 7 (5-15); Carbon Dioxide 21 mmol/L (20-31)
[2024-10-01 10:44] LABS: Calcium 9.1 mg/dL (8.7-10.4)
[2024-10-01 10:45] LABS: Sodium 134 mmol/L (136-145)
[2024-10-01 10:49] LABS: BUN/Creatinine Ratio 10.7 (10.0-20.0); Blood Urea Nitrogen 12 mg/dL (9-23); Glucose 127 mg/dL (74-106)
--- NOTE | 2024-10-01 12:18 | DVHPN2 ---
Subjective Feels better Sleepy Changes from previous H/P or p: Changes Eyes: No Pain, No Vision change, No Conjunctivae inflammation, No Eyelid inflammation, No Other, No Redness ENT: No Ear pain, No Ear discharge, No Nose pain, No Nose discharge, No Nose congestion, No Mouth pain, No Mouth swelling, No Throat pain, No Throat swelling, No Other Cardiovascular: No Chest Pain, No Palpitations, No Orthopnea, No Paroxysmal Noc. Dyspnea, No Edema, No Lt Headedness, No Other Respiratory: No Cough, No Dry, No Shortness of breath, No SOB with excertion, No Wheezing, No Hemoptysis, No Pleuritic Pain, No Sputum, No Other Gastrointestinal: No Nausea, No Vomiting, No Abdominal Pain, No Diarrhea, No Constipation, No Melena, No Hematochezia, No Other Genitourinary: No Dysuria, No Frequency, No Incontinence, No Hematuria, No Retention, No Other Musculoskeletal: No other, No neck pain, No shoulder pain, No arm pain, No back pain, No hand pain, No leg pain, No foot pain Skin: No Rash, No Lesions, No Jaundice, No Bruising, No Other Objective Vitals Vital Signs Date Time Temp Pulse Resp B/P (MAP) Pulse Ox O2 Delivery O2 Flow Rate FiO2 10/01/24 09:00 98.1 118 19 117/78 (91) 100 98.1 09/30/24 20:00 Room Air* 0 21 Intake/Output Intake and Output 10/01/24 07:00 Intake Total 1275 ml Balance 1275 ml Intake Oral 375 ml IV Total 900 ml # Voids 4 General Appearance: Alert, Oriented X3 Lungs: Clear to auscultation, Normal air movement Cardiovascular: Regular rate, Normal S1 Abdomen: Normal bowel sounds, Soft, No tenderness Extremities: No edema Medications Current Medications Medications Dose Ordered Sig/Bruno Route Start Time Stop Time Status Last Admin Dose Admin Acetaminophen 650 mg Q6HP PRN PO 09/27/24 14:15 10/01/24 02:16 650 MG Nitroglycerin 0.4 mg Q5MINP PRN SL 09/27/24 14:15 Morphine Sulfate 2 mg Q30M PRN IV 09/27/24 14:15 Thiamine HCl 100 mg DAILY PO 09/28/24 10:00 10/01/24 10:03 100 MG Folic Acid 1 mg DAILY PO 09/28/24 10:00 10/01/24 10:03 1 MG Multivitamins 1 tab DAILY PO 09/28/24 10:00 10/01/24 10:03 1 TAB Lorazepam 1 mg Q4H IV 09/27/24 18:00 10/01/24 10:04 1 MG Lorazepam 1 mg Q2HPRN PRN IV 09/27/24 14:15 09/30/24 11:33 1 MG Potassium Chloride/Sodium Chloride 1,000 ml @ 100 mls/hr Q10H IV 09/28/24 09:00 10/01/24 06:36 100 MLS/HR Lorazepam 1 mg ONCE PRN IV 09/28/24 10:15 Lorazepam 1 mg Q5MINP PRN IV 09/28/24 10:15 Lorazepam 1 mg ONCE PRN IV 09/30/24 00:15 Laboratory Results Laboratory Tests 09/30/24 05:30 10/01/24 10:24 Chemistry Test 10/01/24 10:24 Calcium Level 9.1 mg/dL (8.7-10.4) Urinalysis Test 09/27/24 13:08 Urine Color Dark yellow (Yellow) Urine Clarity Turbid (Clear) H Urine pH 6.5 (5.0-9.0) Urine Specific [place] 1.012 (1.001-1.035) Urine Protein 1+ (Negative) H Urine Ketones Negative (Negative) Urine Blood 3+ /uL (Negative) H Urine Nitrite Negative (Negative) Urine Bilirubin Negative (Negative) Urine Urobilinogen Normal mg/dL (Negative) Urine Leukocyte Esterase Negative /uL (Negative) Urine RBC 1 /hpf (0 - 3) Urine Microscopic WBC 1 /HPF (0-3) Urine Squamous Epithelial Cells None seen /hpf (<5) Urine Bacteria None seen /hpf (None Seen) Urine Hyaline Casts Few /lpf (0 - 2) Urine Glucose Normal mg/dL (Normal) Microbiology Microbiology Date/Time Source Procedure Growth Status 09/29/24 12:10 Nose MRSA Screen - Final Complete 09/27/24 13:00 Blood Blood Culture - Preliminary NO GROWTH AFTER 72 HOURS OF INCUBATION. Resulted Assessment/Plan Assessment/Plan Seizures due to alcohol withdrawal Acute metabolic encephalopathy Alcohol dependence Alcohol withdrawal Hyponatremia Hypokalemia Hypercalcemia Acute kidney injury due to vasomotor nephropathy Dehydration Hypomagnesemia Alcoholic hepatitis NSTEMI most likely type 2 Cervical spinal canal stenosis Plan The OU IV fluids normal saline with potassium Multivitamins Thiamine Folic acid Librium and Ativan for alcohol withdrawal MRI of the brain is still pending Seizure precautions Monitor closely Full code Advance directives discussed for 15 minute 09/29/24: Continue IV fluids with K+ Librium Ativan Thiamine MVI Folic acid Downgrade to Tele 09/30/2024: Continue IV fluids with potassium Continue lorazepam and Librium as needed Multivitamins Monitor closely The rest of the management will depend on the hospital course 10/01/2024: Continue the current management The patient is sleepy He says his tired Monitor closely Plan discussed with: Patient Date of Service: October 01, 2024 Billing Provider: SINCERE DAVENPORT MD Common Visit Codes: [id number] INP/OBS CARE(MOD) SINCERE DAVENPORT MD October 01, 2024 12:18
--- NOTE | 2024-10-01 23:35 | ECG ---
[facility] Test Date: 2024-10-01 Test Time: 23:28:39 Pat Name: VICKI KERN Department: Room: 0285T B Gender: M [employer] Admin: GP : 1980 Requested By: KAYLIN ALLEN Order Number: [id number] Reading MD: Paulie Verdin Measurements Intervals [place] Rate: 89 P: 73 WI: 134 QRS: 18 QRSD: 88 T: 41 QT: 344 QTc: 419 Interpretive Statements Sinus rhythm Baseline wander in lead(s) V4 Electronically Signed On 10-04-2024 11:57:37 PDT by Paulie Verdin Please click the below link to view image of tracing.
[2024-10-02] VITALS (8 sets, daily range): BP systolic 98–121; BP diastolic 57–87; PULSE 76–106; RESP 18–20; TEMP 97.6–98.7; O2SAT 98–100
[2024-10-02] MEDS: PANTOPRAZOLE 40 MG/10 ML VIAL INJ IV ONE (00:10)
[2024-10-02] MEDS: PANTOPRAZOLE 40 MG/10 ML VIAL INJ IV SCH (10:42)
--- NOTE | 2024-10-02 13:41 | DVHPN2 ---
Subjective Feels better More alert Changes from previous H/P or p: Changes Eyes: No Pain, No Vision change, No Conjunctivae inflammation, No Eyelid inflammation, No Other, No Redness ENT: No Ear pain, No Ear discharge, No Nose pain, No Nose discharge, No Nose congestion, No Mouth pain, No Mouth swelling, No Throat pain, No Throat swelling, No Other Cardiovascular: No Chest Pain, No Palpitations, No Orthopnea, No Paroxysmal Noc. Dyspnea, No Edema, No Lt Headedness, No Other Respiratory: No Cough, No Dry, No Shortness of breath, No SOB with excertion, No Wheezing, No Hemoptysis, No Pleuritic Pain, No Sputum, No Other Gastrointestinal: No Nausea, No Vomiting, No Abdominal Pain, No Diarrhea, No Constipation, No Melena, No Hematochezia, No Other Genitourinary: No Dysuria, No Frequency, No Incontinence, No Hematuria, No Retention, No Other Musculoskeletal: No other, No neck pain, No shoulder pain, No arm pain, No back pain, No hand pain, No leg pain, No foot pain Skin: No Rash, No Lesions, No Jaundice, No Bruising, No Other Objective Vitals Vital Signs Date Time Temp Pulse Resp B/P (MAP) Pulse Ox O2 Delivery O2 Flow Rate FiO2 10/02/24 09:00 98.3 95 20 117/83 (94) 99 98.3 10/02/24 08:05 Room Air* 0 21 Intake/Output Intake and Output 10/02/24 07:00 Intake Total 1036 ml Balance 1036 ml Intake Oral 1036 ml # Voids 11 General Appearance: Alert, Oriented X3 Lungs: Clear to auscultation, Normal air movement Cardiovascular: Regular rate, Normal S1 Abdomen: Normal bowel sounds, Soft, No tenderness Extremities: No edema Medications Current Medications Medications Dose Ordered Sig/Bruno Route Start Time Stop Time Status Last Admin Dose Admin Acetaminophen 650 mg Q6HP PRN PO 09/27/24 14:15 10/02/24 05:49 650 MG Nitroglycerin 0.4 mg Q5MINP PRN SL 09/27/24 14:15 Morphine Sulfate 2 mg Q30M PRN IV 09/27/24 14:15 Thiamine HCl 100 mg DAILY PO 09/28/24 10:00 10/02/24 10:41 100 MG Folic Acid 1 mg DAILY PO 09/28/24 10:00 10/02/24 10:42 1 MG Multivitamins 1 tab DAILY PO 09/28/24 10:00 10/02/24 10:42 1 TAB Lorazepam 1 mg Q4H IV 09/27/24 18:00 10/02/24 10:42 1 MG Lorazepam 1 mg Q2HPRN PRN IV 09/27/24 14:15 09/30/24 11:33 1 MG Potassium Chloride/Sodium Chloride 1,000 ml @ 100 mls/hr Q10H IV 09/28/24 09:00 10/01/24 06:36 100 MLS/HR Lorazepam 1 mg ONCE PRN IV 09/28/24 10:15 Lorazepam 1 mg Q5MINP PRN IV 09/28/24 10:15 Lorazepam 1 mg ONCE PRN IV 09/30/24 00:15 Pantoprazole Sodium 40 mg DAILY IV 10/02/24 10:00 10/02/24 10:42 40 MG Laboratory Results Laboratory Tests 09/30/24 05:30 10/01/24 10:24 Urinalysis Test 09/27/24 13:08 Urine Color Dark yellow (Yellow) Urine Clarity Turbid (Clear) H Urine pH 6.5 (5.0-9.0) Urine Specific [place] 1.012 (1.001-1.035) Urine Protein 1+ (Negative) H Urine Ketones Negative (Negative) Urine Blood 3+ /uL (Negative) H Urine Nitrite Negative (Negative) Urine Bilirubin Negative (Negative) Urine Urobilinogen Normal mg/dL (Negative) Urine Leukocyte Esterase Negative /uL (Negative) Urine RBC 1 /hpf (0 - 3) Urine Microscopic WBC 1 /HPF (0-3) Urine Squamous Epithelial Cells None seen /hpf (<5) Urine Bacteria None seen /hpf (None Seen) Urine Hyaline Casts Few /lpf (0 - 2) Urine Glucose Normal mg/dL (Normal) Microbiology Microbiology Date/Time Source Procedure Growth Status 09/29/24 12:10 Nose MRSA Screen - Final Complete 09/27/24 13:00 Blood Blood Culture - Final NO GROWTH AFTER 5 DAYS OF INCUBATION. Complete Assessment/Plan Assessment/Plan Seizures due to alcohol withdrawal Acute metabolic encephalopathy Alcohol dependence Alcohol withdrawal Hyponatremia Hypokalemia Hypercalcemia Acute kidney injury due to vasomotor nephropathy Dehydration Hypomagnesemia Alcoholic hepatitis NSTEMI most likely type 2 Cervical spinal canal stenosis Plan The OU IV fluids normal saline with potassium Multivitamins Thiamine Folic acid Librium and Ativan for alcohol withdrawal MRI of the brain is still pending Seizure precautions Monitor closely Full code Advance directives discussed for 15 minute 09/29/24: Continue IV fluids with K+ Librium Ativan Thiamine MVI Folic acid Downgrade to Tele 09/30/2024: Continue IV fluids with potassium Continue lorazepam and Librium as needed Multivitamins Monitor closely The rest of the management will depend on the hospital course 10/01/2024: Continue the current management The patient is sleepy He says his tired Monitor closely 10/02/2024: Discontinue IV fluids Add Diflucan IV and nystatin swish and swallow for the oral thrush and candidiasis Continue p.o. vitamins Continue p.o. Ativan p.r.n. anxiety or tremor Ambulate Physical therapy evaluation Monitor closely Plan discussed with: Patient Date of Service: October 02, 2024 Billing Provider: SINCERE DAVENPORT MD Common Visit Codes: [id number] INP/OBS CARE(HIGH) SINCERE DAVENPORT MD October 02, 2024 13:41
[2024-10-02] MEDS: FLUCONAZOLE 200MG/100ML 100 ML IV ONE (14:49)
[2024-10-02] MEDS: LORazepam 0.5 MG TAB PO PRN (17:30)
[2024-10-02] MEDS: NYSTATIN (MOUTH-THROAT) 500,000 UNITS/5 ML SUSP MT SCH (17:30)
[2024-10-02] MEDS: MELATONIN 5 MG TAB PO SCH (22:00)
[2024-10-03] VITALS (8 sets, daily range): BP systolic 107–118; BP diastolic 64–79; PULSE 79–106; RESP 14–20; TEMP 97.8–98.6; O2SAT 97–100
--- NOTE | 2024-10-03 00:13 | DVHPN2 ---
Progress Note - Dictate Date Seen: October 02, 2024 Medical Necessity Reason Pt with a Central, PICC or Fol: No Subjective Mr. Hankins is a 44 years old gentleman with a history of hypertension, diabetes, anxiety, depression, heavy alcohol consumption, he was brought to the [facility] on 09/27/2024 with a chief complaint of seizure. He was in [facility] in 01/2020 four for alcohol withdrawal I have seen and examined the patient, his nurse, his sitter in the room. He was in the bed, oriented x4, He tells me he is not interested in psychiatry evaluation in the hospital at this time, he [facility] Plasma alcohol, 09/27/2024: 11.4 UDS, 09/27/2024: Cannabinoids Urinalysis, 09/27/2024: Unremarkable WBC/HB/PLT/MCV, 09/28/2024: 5.6/12/102/87.2 Sodium, 09/27/24: 118, 122, 09/28/2024: 128 Potassium, 09/27/2024: 2.5, 3.2, 09/28/2024: 2.4 Lactic acid, 09/27/2024: 8.8, 3.9 EEG 09/29/2024: This is an inadequate, but likely unremarkable EEG BUN/CR, 09/27/2024: 28/1.83, 09/28/2024: 21/1.5 TBI/AST/ALT/AP, 09/27/2024: 1.2/279/101/94, 09/28/2024: 0.8/274/119/102 CT head, 09/27/2024: 1. Nonspecific 1.6 cm cystic focus in the central sridevi. Further evaluation with MRI brain with contrast is recommended. 2. There is no evidence of intracranial hemorrhage CT C-spine, 09/27/2024: 1. No fracture of the cervical spine. 2. 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 Recommend follow-up noncontrast MRI of the cervical spine as there is likely mass effect on the cervical spinal cord at multiple levels. 3. Significant neural foraminal stenosis bilaterally at C5-C6 and C6-C7. These findings May correspond to bilateral upper extremity radicular symptoms in the C6 and C7 nerve root distributions. These would also be better characterized with noncontrast MRI. 4. Tonsillar hypertrophy with mild narrowing of the upper airway. 5. Mild right maxillary sinus disease. The paranasal sinuses are not fully imaged here. MR head, 09/28/2024: 1. No acute cerebrovascular ischemia. 2. 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 Recommend MRI brain with contrast now to ensure that there is no abnormal enhancement. Additionally, recommend follow-up MRI brain with and without contrast in 3 months to ensure stability and exclude any type of other lesions /aggressive process MRI head w, 09/30/2024: In regards to the clinical question, no abnormal enhancement involving the cystic structure located within the central aspect of the sridevi vital signs Vital Sign Date Time Temp Pulse Resp B/P (MAP) Pulse Ox O2 Delivery O2 Flow Rate FiO2 10/02/24 21:00 98.7 90 20 98/57 (71) 98 98.7 10/02/24 08:05 Room Air* 0 21 Total Intake and Output 10/02/24 10/02/24 10/03/24 15:00 23:00 07:00 Intake Total 1400 ml Balance 1400 ml medications Current Medications Medications Dose Ordered Sig/Bruno Route Start Time Stop Time Status Last Admin Dose Admin Acetaminophen 650 mg Q6HP PRN PO 09/27/24 14:15 10/02/24 05:49 650 MG Nitroglycerin 0.4 mg Q5MINP PRN SL 09/27/24 14:15 Morphine Sulfate 2 mg Q30M PRN IV 09/27/24 14:15 Thiamine HCl 100 mg DAILY PO 09/28/24 10:00 10/02/24 10:41 100 MG Folic Acid 1 mg DAILY PO 09/28/24 10:00 10/02/24 10:42 1 MG Multivitamins 1 tab DAILY PO 09/28/24 10:00 10/02/24 10:42 1 TAB Lorazepam 1 mg Q5MINP PRN IV 09/28/24 10:15 Pantoprazole Sodium 40 mg DAILY IV 10/02/24 10:00 10/02/24 10:42 40 MG Fluconazole 100 ml @ 100 mls/hr DAILY IV 10/03/24 10:00 Nystatin 5 ml QID MT 10/02/24 18:00 10/02/24 22:19 5 ML Lorazepam 0.5 mg Q6HP PRN PO 10/02/24 13:45 10/02/24 17:30 0.5 MG Melatonin 10 mg HS PO 10/02/24 22:00 objective General: the patient is well developed and nourished. No acute distress. MUSCULOSKELETAL EXAM: Bilateral hammertoes MENTAL STATUS: Subjective SPEECH, LANGUAGE, HIGHER CORTICAL FUNCTION: No aphasia or dysarthria CRANIAL NERVES: Pupils are equal, round and reactive. EOMs full and conjugate Facial sensation intact in all three divisions bilaterally. Mandibular strength intact. Facial muscles symmetrical and strength intact. SENSATION: Sensation to touch and pinprick is fine MOTOR: Normal tone in the upper and lower extremity. Normal muscle bulk. No fasciculations. No abnormal movements or posturing. He can move the arms and legs REFLEXES: Deep tendon reflexes are symmetrical. No pathological reflexes. CEREBELLAR/COORDINATION: Deferred GAIT/STATION: deferred. laboratory and microbiology Laboratory Tests 10/01/24 10:24 09/30/24 05:30 Test 10/01/24 10:24 Range/Units Serum Glucose 127 H 74-106 mg/dL Problem List Passing out Syncope Seizure Alcoholism [employer], to rule out polyneuropathy Cystic lesion in the sridevi ? Arachnoid cyst ? Central pontine myelinolysis Hyponatremia Hypokalemia Depression Assessment/Plan Monitoring Supportive treatment Telemetry Follow-up labs Folic acid supplementation Thiamine supplementation Potassium supplementation Librium Ativan for seizure activity Need to quit alcohol completely More recommendation per clinical This medical document was created using an electronic medical record system with [employer] dictation system. Although this document has been carefully reviewed, there may still be some phonetic and typographical errors. These areas are purely typographical due to imperfections of the software programs, and do not reflect any compromise in the patient's medical care. Prognosis poor Dietary Evaluation Review Comments: 1) CCHO 60gm + 2gm Na 2) Refer CDE on DC 3) Continue current POC Expected Outcomes/Goals: Pt will meet 75% estimated needs GI symptoms to improve FU 3-5 days Plan discussed with: Patient, Other CLAUDINE PRICE MD October 03, 2024 00:13
[2024-10-03 07:01] LABS: Albumin 3.8 g/dL (3.2-4.8); Alkaline Phosphatase 83 U/L (46-116); Anion Gap 10 (5-15); Aspartate Aminotransferase 33 U/L (13-40); BUN/Creatinine Ratio 10.2 (10.0-20.0); Blood Urea Nitrogen 12 mg/dL (9-23); Carbon Dioxide 21 mmol/L (20-31); Magnesium 2.1 mg/dL (1.6-2.6); Potassium 4.1 mmol/L (3.5-5.1); Sodium 139 mmol/L (136-145); Total Protein 6.3 g/dL (5.7-8.2)
[2024-10-03 07:06] LABS: Chloride 108 mmol/L (98-107); Glucose 109 mg/dL (74-106)
[2024-10-03 07:07] LABS: Alanine Aminotransferase 57 U/L (7-40); Bilirubin, Total 0.2 mg/dL (0.2-1.0)
[2024-10-03] MEDS: FLUCONAZOLE 200MG/100ML 100 ML IV SCH (09:12)
--- NOTE | 2024-10-03 11:46 | DVHPN2 ---
Subjective Feels better More alert Less sore throat and less dysphagia Changes from previous H/P or p: Changes Eyes: No Pain, No Vision change, No Conjunctivae inflammation, No Eyelid inflammation, No Other, No Redness ENT: No Ear pain, No Ear discharge, No Nose pain, No Nose discharge, No Nose congestion, No Mouth pain, No Mouth swelling, No Throat pain, No Throat swelling, No Other Cardiovascular: No Chest Pain, No Palpitations, No Orthopnea, No Paroxysmal Noc. Dyspnea, No Edema, No Lt Headedness, No Other Respiratory: No Cough, No Dry, No Shortness of breath, No SOB with excertion, No Wheezing, No Hemoptysis, No Pleuritic Pain, No Sputum, No Other Gastrointestinal: No Nausea, No Vomiting, No Abdominal Pain, No Diarrhea, No Constipation, No Melena, No Hematochezia, No Other Genitourinary: No Dysuria, No Frequency, No Incontinence, No Hematuria, No Retention, No Other Musculoskeletal: No other, No neck pain, No shoulder pain, No arm pain, No back pain, No hand pain, No leg pain, No foot pain Skin: No Rash, No Lesions, No Jaundice, No Bruising, No Other Objective Vitals Vital Signs Date Time Temp Pulse Resp B/P (MAP) Pulse Ox O2 Delivery O2 Flow Rate FiO2 10/03/24 09:00 98.0 104 18 118/77 (91) 99 98.0 10/03/24 08:05 Room Air* 0 21 Intake/Output Intake and Output 10/03/24 07:00 Intake Total 2030 ml Balance 2030 ml Intake Oral 2030 ml # Voids 9 # Bowel Movements 1 General Appearance: Alert, Oriented X3 Lungs: Clear to auscultation, Normal air movement Cardiovascular: Regular rate, Normal S1 Abdomen: Normal bowel sounds, Soft, No tenderness Extremities: No edema Medications Current Medications Medications Dose Ordered Sig/Bruno Route Start Time Stop Time Status Last Admin Dose Admin Acetaminophen 650 mg Q6HP PRN PO 09/27/24 14:15 10/02/24 05:49 650 MG Nitroglycerin 0.4 mg Q5MINP PRN SL 09/27/24 14:15 Morphine Sulfate 2 mg Q30M PRN IV 09/27/24 14:15 Thiamine HCl 100 mg DAILY PO 09/28/24 10:00 10/03/24 09:11 100 MG Folic Acid 1 mg DAILY PO 09/28/24 10:00 10/03/24 09:10 1 MG Multivitamins 1 tab DAILY PO 09/28/24 10:00 10/03/24 09:10 1 TAB Lorazepam 1 mg Q5MINP PRN IV 09/28/24 10:15 Pantoprazole Sodium 40 mg DAILY IV 10/02/24 10:00 10/03/24 09:12 40 MG Fluconazole 100 ml @ 100 mls/hr DAILY IV 10/03/24 10:00 10/03/24 09:12 100 MLS/HR Nystatin 5 ml QID MT 10/02/24 18:00 10/03/24 11:37 5 ML Lorazepam 0.5 mg Q6HP PRN PO 10/02/24 13:45 10/03/24 10:16 0.5 MG Melatonin 10 mg HS PO 10/02/24 22:00 Laboratory Results Laboratory Tests 09/30/24 05:30 10/03/24 05:20 Chemistry Test 10/03/24 05:20 Albumin 3.8 g/dL (3.2-4.8) Calcium Level 9.0 mg/dL (8.7-10.4) Magnesium Level 2.1 mg/dL (1.6-2.6) Total Protein 6.3 g/dL (5.7-8.2) LFT Test 10/03/24 05:20 Alanine Aminotransferase (ALT) 57 U/L (7-40) H Alkaline Phosphatase 83 U/L (46-116) Aspartate Amino Transferase (AST) 33 U/L (13-40) Total Bilirubin 0.2 mg/dL (0.2-1.0) Urinalysis Test 09/27/24 13:08 Urine Color Dark yellow (Yellow) Urine Clarity Turbid (Clear) H Urine pH 6.5 (5.0-9.0) Urine Specific [place] 1.012 (1.001-1.035) Urine Protein 1+ (Negative) H Urine Ketones Negative (Negative) Urine Blood 3+ /uL (Negative) H Urine Nitrite Negative (Negative) Urine Bilirubin Negative (Negative) Urine Urobilinogen Normal mg/dL (Negative) Urine Leukocyte Esterase Negative /uL (Negative) Urine RBC 1 /hpf (0 - 3) Urine Microscopic WBC 1 /HPF (0-3) Urine Squamous Epithelial Cells None seen /hpf (<5) Urine Bacteria None seen /hpf (None Seen) Urine Hyaline Casts Few /lpf (0 - 2) Urine Glucose Normal mg/dL (Normal) Microbiology Microbiology Date/Time Source Procedure Growth Status 09/29/24 12:10 Nose MRSA Screen - Final Complete 09/27/24 13:00 Blood Blood Culture - Final NO GROWTH AFTER 5 DAYS OF INCUBATION. Complete Assessment/Plan Assessment/Plan Seizures due to alcohol withdrawal Acute metabolic encephalopathy Alcohol dependence Alcohol withdrawal Hyponatremia Hypokalemia Hypercalcemia Acute kidney injury due to vasomotor nephropathy Dehydration Hypomagnesemia Alcoholic hepatitis NSTEMI most likely type 2 Cervical spinal canal stenosis Oral candidiasis Plan The OU IV fluids normal saline with potassium Multivitamins Thiamine Folic acid Librium and Ativan for alcohol withdrawal MRI of the brain is still pending Seizure precautions Monitor closely Full code Advance directives discussed for 15 minute 09/29/24: Continue IV fluids with K+ Librium Ativan Thiamine MVI Folic acid Downgrade to Tele 09/30/2024: Continue IV fluids with potassium Continue lorazepam and Librium as needed Multivitamins Monitor closely The rest of the management will depend on the hospital course 10/01/2024: Continue the current management The patient is sleepy He says his tired Monitor closely 10/02/2024: Discontinue IV fluids Oral thrush: Add Diflucan IV and nystatin swish and swallow for the oral thrush and candidiasis Continue p.o. vitamins Continue p.o. Ativan p.r.n. anxiety or tremor Ambulate Physical therapy evaluation Monitor closely 10/03/2024: Oral thrush: Better, continue swish and swallow nystatin and IV Diflucan Generalized weakness: Out of bed and physical therapy Continue vitamins Ativan as needed Monitor closely in the hospital 1 more day and discharge planning for tomorrow Plan discussed with: Patient My Orders Orders - SINCERE DAVENPORT MD Procedure Category Date Status Time Fluconazole PHA 10/03/24 In Process 200mg/100ml (Diflucan 10:00 Nystatin PHA 10/02/24 In Process (Mouth-Throat) 18:00 Pt Request For Service PT 10/02/24 Logged 13:36 Lorazepam Tablet PHA 10/02/24 In Process (Ativan Tablet) 13:45 Date of Service: October 03, 2024 Billing Provider: SINCERE DAVNEPORT MD Common Visit Codes: [id number] INP/OBS CARE(HIGH) SINCERE DAVENPORT MD October 03, 2024 11:46
[2024-10-04 01:00] VITALS: BP 121/71; PULSE 88; RESP 16; TEMP 96.8; O2SAT 100
[2024-10-04 05:00] VITALS: BP 120/83; PULSE 91; RESP 16; TEMP 98.1; O2SAT 99
[2024-10-04 08:00] VITALS: PULSE 119
[2024-10-04 09:00] VITALS: BP 131/89; PULSE 111; RESP 19; TEMP 98.3; O2SAT 100
[2024-10-04] MEDS ORDERED: NYS5LQ MT (11:56)
[2024-10-04 13:21] VITALS: BP 117/70; PULSE 91; RESP 19; TEMP 98.1; O2SAT 100
--- NOTE | 2024-10-04 17:19 | DVHDS2 ---
Discharge Summary Date of Admission September 27, 2024 at 14:05 Date of Discharge: October 04, 2024 Labs/Diagnostic Data: Laboratory Results Test 10/03/24 05:20 09/30/24 05:30 09/29/24 07:50 09/29/24 04:50 Sodium Level 139 mmol/L (136-145) Potassium Level 4.1 mmol/L (3.5-5.1) Chloride Level 108 mmol/L (98-107) Carbon Dioxide Level 21 mmol/L (20-31) Anion Gap 10 (5-15) Blood Urea Nitrogen 12 mg/dL (9-23) Creatinine 1.18 mg/dL (0.700-1.30) Glomerular Filtration Rate Calc 78 mL/min (>90) BUN/Creatinine Ratio 10.2 (10.0-20.0) Serum Glucose 109 mg/dL (74-106) Calcium Level 9.0 mg/dL (8.7-10.4) Magnesium Level 2.1 mg/dL (1.6-2.6) Total Bilirubin 0.2 mg/dL (0.2-1.0) Aspartate Amino Transferase (AST) 33 U/L (13-40) Alanine Aminotransferase (ALT) 57 U/L (7-40) Alkaline Phosphatase 83 U/L (46-116) Total Protein 6.3 g/dL (5.7-8.2) Albumin 3.8 g/dL (3.2-4.8) White Blood Count 6.8 10^3/uL (4.4-10.8) Red Blood Count 4.09 10^6/uL (4.5-5.90) Hemoglobin 12.4 g/dL (13.5-17.5) Hematocrit 36.1 % (41.0-53.0) Mean Corpuscular Volume 88.2 fL (80.0-100.0) Mean Corpuscular Hemoglobin 30.3 pg (28.0-32.0) Mean Corpuscular Hemoglobin Concent 34.4 g/dL (32.0-36.0) Red Cell Distribution Width 14.3 % (11.8-14.3) Platelet Count 177 10^3/uL (140-450) Mean Platelet Volume 7.8 fL (6.9-10.8) Neutrophils (%) (Auto) % (37.0-80.0) Lymphocytes (%) (Auto) % (10.0-50.0) Monocytes (%) (Auto) % (0.0-12.0) Basophils (%) (Auto) % (0.0-2.0) Neutrophils # (Auto) 10 ^3/uL (1.6-8.6) Lymphocytes # (Auto) 10 ^3/uL (0.4-5.4) Monocytes # (Auto) 10 ^3/uL (0-1.3) Differential Total Cells Counted 100.0 (100) Neutrophils % (Manual) 52 (37.0-80.0) Band Neutrophils % (Manual) 4 Lymphocytes % (Manual) 35 (10.0-50.0) Monocytes % (Manual) 7 (0-12) Eosinophils % (Manual) 2 (0-7) Basophils % (Manual) 0 (0.0-2.0) Metamyelocytes % (manual) 0 Myelocytes % (Manual) 0 Promyelocytes % (Manual) 0 Blast Cells % (Manual) 0 Reactive Lymphocytes 0 Platelet Estimate Adequate POC Glucose 149 mg/dl (70-106) Eosinophils (%) (Auto) 0.9 % (0.0-7.0) Eosinophils # (Auto) 0 10 ^3/uL (0-0.8) Basophils # (Auto) 0 10 ^3/uL (0-0.2) Nucleated Red Blood Cells 0.2 % Hemoglobin A1c 6.2 % A1C (<5.7) Triglycerides Level 76 mg/dL (< 150) Cholesterol Level 106 mg/dL (< 200) LDL Cholesterol 40 mg/dL (< 100) HDL Cholesterol 47 mg/dL (40-59) Lipase 38 U/L (12-53) Thyroid Stimulating Hormone (TSH) 0.43 uIU/mL (0.55-4.78) Test 09/28/24 06:15 09/27/24 14:16 09/27/24 13:08 09/27/24 13:00 Creatine Kinase 3158 U/L (46-171) Plasma/Serum Blood Alcohol < 3.0 mg/dL (<10) Troponin I High Sensitivity 163 ng/L (</=54) Urine Color Dark yellow (Yellow) Urine Clarity Turbid (Clear) Urine pH 6.5 (5.0-9.0) Urine Specific [place] 1.012 (1.001-1.035) Urine Protein 1+ (Negative) Urine Ketones Negative (Negative) Urine Blood 3+ /uL (Negative) Urine Nitrite Negative (Negative) Urine Bilirubin Negative (Negative) Urine Urobilinogen Normal mg/dL (Negative) Urine Leukocyte Esterase Negative /uL (Negative) Urine RBC 1 /hpf (0 - 3) Urine Microscopic WBC 1 /HPF (0-3) Urine Squamous Epithelial Cells None seen /hpf (<5) Urine Bacteria None seen /hpf (None Seen) Urine Hyaline Casts Few /lpf (0 - 2) Urine Glucose Normal mg/dL (Normal) Urine Opiates Screen Neg (NEGATIVE) Urine Fentanyl Screen Neg (NEGATIVE) Urine Barbiturates Screen Neg (NEGATIVE) Urine Phencyclidine Screen Neg (NEGATIVE) Urine Amphetamines Screen Neg (NEGATIVE) Urine Benzodiazepines Screen Neg (NEGATIVE) Urine Cocaine Screen Neg (NEGATIVE) Urine Cannabinoids Screen Pos (NEGATIVE) Lactic Acid Level 3.9 mmol/L (0.4-2.0) Other Laboratory Tests 10/03/24 05:20 09/30/24 05:30 Brief Hx & Hospital Course: Final diagnoses: Seizures due to alcohol withdrawal Acute metabolic encephalopathy Alcohol dependence Alcohol withdrawal Hyponatremia Hypokalemia Hypercalcemia Acute kidney injury due to vasomotor nephropathy Dehydration Hypomagnesemia Alcoholic hepatitis NSTEMI most likely type 2 Cervical spinal canal stenosis Oral candidiasis 44-year-old male alcoholic came with alcohol withdrawal and altered level of consciousness and electrolytes imbalance with the acute kidney injury He was given IV fluids and multivitamins He was given benzodiazepines for the withdrawal symptoms Gradually he became with less tremors in the more alert and oriented Overall he did well He developed oral candidiasis and he was treated with IV Diflucan and nystatin swish and swallow Today he was stable and therefore he was discharged to continue nystatin swish and swallow Continue the multivitamins and thiamine and folic acid that he has at home Follow up with his primary care physician as soon as possible Condition at Discharge: Stable Final Diagnosis/Problems List Seizures due to alcohol withdrawal Acute metabolic encephalopathy Alcohol dependence Alcohol withdrawal Hyponatremia Hypokalemia Hypercalcemia Acute kidney injury due to vasomotor nephropathy Dehydration Hypomagnesemia Alcoholic hepatitis NSTEMI most likely type 2 Cervical spinal canal stenosis Oral candidiasis Discharge Disposition: Home SNF Discharge Will this Physician continue t: No Discharge Instruct/Medications Diet: Regular Activity: No Restrictions, As Tolerated Follow Up/Referral: PCP AMANDEEP Medications: Nystatin swish and swallow x 10 days Resume the home medications including thiamine, folic acid and MVI Discharge Statement: "Patient was advised to return to the ER or call 911 if any headaches, dizziness, shortness of breath, chest pain, abdominal pain, bleeding, fevers, or worsening of medical condition. Patient was counseled about treatment plan, medications, possible side effects, patientverbalized understanding. All questions were answered to the best of my ability. This discharge took greater then 30 minutes in planning, reviewing documentation, counseling the patient, and discussing with other team members." ASSESSMENT ASSESSMENT Assessment Seizures due to alcohol withdrawal Acute metabolic encephalopathy Alcohol dependence Alcohol withdrawal Hyponatremia Hypokalemia Hypercalcemia Acute kidney injury due to vasomotor nephropathy Dehydration Hypomagnesemia Alcoholic hepatitis NSTEMI most likely type 2 Cervical spinal canal stenosis Oral candidiasis Date of Service: October 04, 2024 Billing Provider: SINCERE DAVENPORT MD Common Visit Codes: [id number] DISCH DAY >30min SINCERE DAVENPORT MD October 04, 2024 17:19
== END 2024-10-04 15:27 | disposition home or self-care (01) | DRG 53 ==
LOC: EDUNIT# 10:20 → ER 10:20 → EDBD 10:20 → OVERFLOW 14:05 → TELE-CENTR 09-29 16:00 → TELE-WESTW 09-30 14:45
PROVIDERS: ADMIT Internal Medicine Geriatric Medicine; ATTEND Internal Medicine Geriatric Medicine
DX: G40.409 Other generalized epilepsy and epileptic syndromes, not intractable, without status epilepticus (principal); N17.0 Acute kidney failure with tubular necrosis; I21.A1 Myocardial infarction type 2; G93.41 Metabolic encephalopathy; E87.20 Acidosis, unspecified; B37.0 Candidal stomatitis; E87.1 Hypo-osmolality and hyponatremia; I95.9 Hypotension, unspecified; M62.82 Rhabdomyolysis; E83.52 Hypercalcemia; E87.6 Hypokalemia; K70.10 Alcoholic hepatitis without ascites; E86.0 Dehydration; F10.239 Alcohol dependence with withdrawal, unspecified; E83.42 Hypomagnesemia; G93.0 Cerebral cysts; F41.9 Anxiety disorder, unspecified; F12.90 Cannabis use, unspecified, uncomplicated; E11.65 Type 2 diabetes mellitus with hyperglycemia; M48.02 Spinal stenosis, cervical region; F32.A Depression, unspecified; I10 Essential (primary) hypertension; Z82.61 Family history of arthritis; Y90.0 Blood alcohol level of less than 20 mg/100 ml
CPT/HCPCS: 36415; 70450; 70551; 70553; 71045; 72125; 80048; 80053; 80061; 80307; 80320; 81001; 82550; 82962; 83036; 83605; 83690; 83735; 84132; 84443; 84484; 85007; 85025; 85027; 87040; 87081; 93005; 95819; 97110; 97163; 99291; G0378; J1450; J2470; J2543